=== PATIENT | female | born 1985 | race Caucasian/White ===

== ENCOUNTER → 2018-09-23 | Outpatient (CLI) | payer BC ==
--- NOTE | 2018-09-23 10:53 | MR ---
EXAMINATION TYPE: MR angio head wo con DATE OF EXAM: 09/23/2018 COMPARISON: NONE HISTORY: Migraines TECHNIQUE: Utilizing 3-D [id number] intracranial MRA of [facility] was performed. FINDINGS: The vertebrobasilar and carotid systems are patent. There is no sizable aneurysm or vascular malform ation. IMPRESSION: 1. No evidence of vascular malformation or sizable aneurysm.
--- NOTE | 2018-09-23 11:04 | MR ---
EXAMINATION TYPE: MR brain wo/w con DATE OF EXAM: 09/23/2018 COMPARISON: None HISTORY: Migraines TECHNIQUE: Multiplanar, multisequence images of the brain and brainstem is performed without and with IV contras t, utilizing 9 mL intravenous Gadavist . FINDINGS: Diffusion weighted images demonstrate no evidence of a recent infarct or other diffusion ab normality. The ventricular system and cisternal spaces are normal in size and appearance. The brain volume is age appropriate. Midline structures demonstrate normal morphology. The craniocervical junction appears within normal limits. Post contrast images demonstrate no abnormal enhancement. The dural venous sinuses appear pa tent. There is a small soft tissue nodule subcutaneous tissues along the right occiput posteriorly likely r elated to a small sebaceous cyst. There is a trace amount of fluid surrounding the optic nerve. Craniocervical junction is maintained. Sella turcica demonstrates partially empty sella. There is a nasal septal deviation. Changes of mild mastoiditis and chronic sinusitis noted. WHITE MATTER: There are approximately 15 focal areas of abnormal signal seen within the white matter. All measure less than 5 mm. No enhancing lesions. No lesions perpendicular to the ventricular system No callosal lesions IMPRESSION: 1. Nonspecific mild white matter changes can be seen with migraine headaches. Other etiologies includ ing microvascular remote white matter ischemia, hypertension, demyelinating processes, Lyme's disease or vasculitis not excluded. 2. Trace amount of fluid surrounding the optic nerves. There is no flattening of the orbits. Finding is nonspecific and occasionally BE seen with papilledema correlate clinically.
== END ==
LOC: RADMRIMAIN 08:56
PROVIDERS: ATTEND Family Medicine
DX: R90.89 Other abnormal findings on diagnostic imaging of central nervous system (principal); G43.909 Migraine, unspecified, not intractable, without status migrainosus
CPT/HCPCS: 70544; 70553

== ENCOUNTER 2018-10-11 14:02 | Emergency (ER) | payer BC ==
[2018-10-11] MEDS ORDERED: KETOROLAC 30 MG/ML 1 ML VIAL IVP STA (14:35)
[2018-10-11] MEDS ORDERED: diphenhydrAMINE 50 MG/ML 1 ML VIAL IVP STA (14:35)
[2018-10-11] MEDS ORDERED: METOCLOPRAMIDE 5 MG/ML 2 ML VIAL IVP STA (14:35)
[2018-10-11] MEDS ORDERED: SODIUM CHLORIDE 0.9% 1,000 ML IV STA (14:35)
--- NOTE | 2018-10-11 14:56 | ED ---
General Adult HPI - General Chief complaint: Headache Stated complaint: Dizzy, Headache Time Seen by Provider: 10/11/18 14:10 Source: patient, RN notes reviewed, old records reviewed Mode of arrival: wheelchair Limitations: no limitations - History of Present Illness Initial comments: 33-year-old female patient with past medical history of chronic migraine presents to ED with headache. Patient reports that this headache started shortly after she woke up this morning. Patient reports a insidious slow onset of headache. Patient was the headache is located in her right occipital lobe, described as a dull pain. Describes headache as constant. Patient states that this is similar to headaches that she has had for approximately the last 3 months. Patient has been evaluated by her primary care physician for this which she recently underwent a MRI and MRA of her brain. Patient does have follow-up with neurology approximately 2 weeks. Patient states that this is not the worst headache of her life. Patient denies any other complaints. Systemic: Pt denies fatigue, myalgia, fever/chills, rash. Pt denies weakness, night sweats, weight loss. Neuro: Pt denies headache, visual disturbances, syncope or pre-syncope. HEENT: Pt denies ocular discharge or irritation, otalgia, rhinorrhea, pharyngitis or notable lymphadenopathy. Cardiopulmonary: Pt denies chest pain, SOB, heart palpitations, dyspnea on exertion. Abdominal/GI: Pt denies abdominal pain, n/v/d. : Pt denies dysuria, burning w/ urination, frequency/urgency. Denies new onset urinary or bowel incontinence. MSK: Pt denies myalgia, loss of strength or function in extremities. Neuro: Pt denies new onset weakness, paresthesias. - Related Data Home Medications Medication Instructions Recorded Confirmed Butalb/APAP/Caff 50-325-40Mg 1 - 2 tab PO Q4H PRN 10/11/18 10/11/18 [Fioricet 50-325-40] buPROPion HCL [Wellbutrin SR] 150 mg PO BID 10/11/18 10/11/18 Allergies Allergy/AdvReac Type Severity Reaction Status Date / Time azithromycin Allergy Rash/Hives Verified 10/11/18 14:12 [From Zithromax Z-Jose Angel] erythromycin ethylsuccinate Allergy Rash/Hives Verified 10/11/18 14:12 [From Pediazole] sulfisoxazole acetyl Allergy Rash/Hives Verified 10/11/18 14:12 [From Pediazole] Review of Systems ROS Statement: Those systems with pertinent positive or pertinent negative responses have been documented in the HPI. ROS Other: All systems not noted in ROS Statement are negative. Past Medical History Past Medical History: Hypertension Additional Past Medical History / Comment(s): History Migraines History of Any Multi-Drug Resistant Organisms: None Reported Past Surgical History: Section Additional Past Surgical History / Comment(s): wisdom teeth pulled Past Anesthesia/Blood Transfusion Reactions: No Reported Reaction Past Psychological History: Anxiety, Depression Smoking Status: Current every day smoker Past Alcohol Use History: None Reported, Rare Past Drug Use History: None Reported - Past Family History Mother Family Medical History: Hypertension, Rheumatoid Arthritis (RA), Thyroid Disorder Father Family Medical History: GI Bleed, Hypertension, Rheumatoid Arthritis (RA) General Exam - General Exam Comments Initial Comments: Constitutional: NAD, AOX3, Pt has pleasant affect. HEENT: NC/AT, trachea midline, neck supple, no lymphadenopathy. Posterior pharynx non erythematous, without exudates. External ears appear normal, without discharge. Mucous membranes moist. Eyes PERRLA, EOM intact. There is no scleral icterus. No pallor noted. Cardiopulmonary: RRR, no murmurs, rubs or gallops, no JVD noted. Lungs CTAB in anterior and posterior mathis. No peripheral edema. Abdominal exam: Abdomen soft and non-distended. Abdomen non-tender to palpation in all 4 quadrants. Bowel sounds active in LLQ. No hepatosplenomegaly. No ecchymosis Neuro: CN II-XII intact. No nuchal rigidity. No focal deficit, no facial droop. MSK: No posterior calf tenderness bilaterally, homans sign negative bilaterally. Posterior tibialis and radial pulse +2 bilaterally. Sensation intact in upper and lower extremities. Full active ROM in upper and lower extremities, 5/5 stregnth. Limitations: no limitations Course Vital Signs 10/11/18 14:05 Temperature 98.4 F Pulse Rate 108 H Respiratory 18 Rate Blood Pressure 142/87 O2 Sat by Pulse 99 Oximetry Medical Decision Making - Medical Decision Making 33-year-old female patient with past medical history of chronic migraine presents to ED with headache. Patient reports that this headache started shortly after she woke up this morning. Patient reports a insidious slow onset of headache. Patient was the headache is located in her right occipital lobe, described as a dull pain. Describes headache as constant. Patient states that this is similar to headaches that she has had for approximately the last 3 months. Patient has been evaluated by her primary care physician for this which she recently underwent a MRI and MRA of her brain. Patient does have follow-up with neurology approximately 2 weeks. Patient states that this is not the worst headache of her life. Patient denies any other complaints. Pt VSS, afebrile. Physical exam displayed normal neurologic exam. Patient's prior imaging MRI and MRA were reviewed. Patient had ophthalmology follow-up due to possible mom of trace fluid an optic nerve that was reportedly benign. Shared decision making, patient does not assure additional radiation burden up imaging, would prefer to be treated symptomatically. Patient administered Reglan, Toradol, Benadryl. Patient headache resolved. Pt has hx of tubal ligation and is not . Patient discharged. Patient will call neurologist and follow up as soon as possible. PT will return to ER if condition worsens in anyway. Case discussed with Dr. Parson. Disposition Clinical Impression: Acute headache Disposition: HOME SELF-CARE Condition: Stable Instructions (If sedation given, give patient instructions): Acute Headache (ED) Additional Instructions: Patient to adhere to previously discussed treatment plan and will take medication(s) as directed. Patient to follow up with PCP in 1-2 days. Patient to return to ED if symptoms do not improve. Please call neurologist tomorrow for follow-up. Return to ER if condition worsens in any way. Is patient prescribed a controlled substance at d/c from ED?: No Referrals: Mack Sharma MD [Primary Care Provider] - 1-2 days
[2018-10-11 17:06] VITALS: BP 131/80; PULSE 81; RESP 8; TEMP 98.7
== END 2018-10-11 17:05 | disposition home or self-care (01) ==
LOC: EC 14:02
DX: G43.709 Chronic migraine without aura, not intractable, without status migrainosus (principal); F32.9 Major depressive disorder, single episode, unspecified; F17.200 Nicotine dependence, unspecified, uncomplicated; Z79.899 Other long term (current) drug therapy; Z88.1 Allergy status to other antibiotic agents; Z88.2 Allergy status to sulfonamides
CPT/HCPCS: 99283; 96374; 96375 ×2; 96361; J1200; J2765; J1885

== ENCOUNTER → 2021-02-20 | Outpatient (CLI) | payer BC ==
--- NOTE | 2021-02-20 11:21 | US ---
EXAMINATION TYPE: US abdomen complete DATE OF EXAM: 02/20/2021 COMPARISON: NONE CLINICAL HISTORY: R10.9 abdominal pain. Generalized ABD pain EXAM MEASUREMENTS: Liver Length: 18.0 cm Gallbladder Wall: 0.2 cm CBD: 0.3 cm Spleen: 12.2 cm Right Kidney: 10.6 x 4.1 x 5.2 cm Left Kidney: 11.3 x 4.9 x 4.3 cm Large pt body habitus Pancreas: wnl, tail obscured by overlying bowel gas Liver: Upper limits of normal for size, difficult to penetrate Gallbladder: wnl, multiple folds Evidence for sonographic Ronquillo's sign: No CBD: wnl Spleen: wnl Right Kidney: wnl Left Kidney: wnl Upper IVC: wnl Abd Aorta: wnl The intrahepatic portion of the IVC and proximal abdominal aorta are within normal limits. There is no evidence of cholelithiasis. Common bile duct is unremarkable. The visualized portions of the mcclure creas are homogenous. The spleen is unremarkable. Kidneys are symmetric and free of hydronephrosis. No renal lesions are seen. IMPRESSION: Hepatomegaly with underlying fatty hepatic infiltration suggested.
== END | disposition home or self-care (01) ==
LOC: RADUSWWP 10:03
PROVIDERS: ATTEND Family Medicine
DX: K76.0 Fatty (change of) liver, not elsewhere classified (principal); R16.0 Hepatomegaly, not elsewhere classified
CPT/HCPCS: 76700

== ENCOUNTER → 2021-05-08 | Outpatient (CLI) | payer BC ==
[2021-05-08 14:21] VITALS: BP 136/91; PULSE 111; RESP 18; TEMP 98.6; BMI 40.5
--- NOTE | 2021-05-08 14:42 | P.HPBAR ---
Bariatric H&P - History & Physicial H&P Date: 05/08/21 History & Physicial: Visit/CC: initial visit Patient initial contact: Initial weight: 103.873 kg Initial weight in pounds: 229.00 Height: 5 ft 3 in Initial BMI: 40.5 Last weight: Current weight: 103.873 kg Current weight in pounds: 229.00 Current BMI: 40.5 [place] body weight (based on NIH guidelines): 52.163 kg Excess body weight loss: 0.0% The patient is a 35 year-old F who presents for Bariatric Assessment. She is looking into the lap band. She has tried Adipex, Weight watchers, calorie restriction. She tried [employer] online for weight loss this summer. Most weight loss is 50 pounds. Highest personal weight 235 pounds. Her goal weight is 150 pounds. No chest pain. Her mother has trouble with weight including grandfather. She has occasional gastroesophageal reflux disease. She has two sections. She still has her gallbladder. She has trouble with eating fatty foods. No known family of gallbladder disease. She denies family history of lupus or multiple sclerosis. She is a grazer and eats late breakfast. She is a snacker. She denies dysphagia. Past Medical History Past Medical History: Hypertension, Thyroid Disorder Additional Past Medical History / Comment(s): History Migraines. hypothyroidism. History of Any Multi-Drug Resistant Organisms: None Reported Past Surgical History: Section Additional Past Surgical History / Comment(s): wisdom teeth pulled. csection X2. Past Anesthesia/Blood Transfusion Reactions: No Reported Reaction Smoking Status: Former smoker - Past Family History Mother Family Medical History: Hypertension, Rheumatoid Arthritis (RA), Thyroid Disorder Father Family Medical History: GI Bleed, Hypertension, Rheumatoid Arthritis (RA) Surgical - Exam Vital Signs Temp Pulse Resp BP 98.6 F 111 H 18 136/91 05/08/21 14:19 05/08/21 14:19 05/08/21 14:19 05/08/21 14:19 Bariatric Checklist Checklist: Plan: Checklist: EGD: 1. Hiatal hernia: 2. H. Pylori: HgbA1c: Vitamin D: Smoking: Current every day smoker Primary care physician referral: Dr. Mack Sharma Psychiatry clearance: Cardiology clearance: Sleep study: Diet journal: VTE risk score: VTE risk level: Rehab needs at discharge:
== END | disposition home or self-care (01) ==
LOC: BARWHC3 13:12
PROVIDERS: ATTEND Surgery Plastic and Reconstructive Surgery
DX: K44.9 Diaphragmatic hernia without obstruction or gangrene (principal); A04.8 Other specified bacterial intestinal infections
CPT/HCPCS: 99203

== ENCOUNTER → 2021-05-09 | Outpatient (CLI) | payer BC ==
[2021-05-09 10:08] LABS: INR 0.9 (<1.2); Partial Thromboplastin Time 25.8 sec (22.0-30.0)
[2021-05-09 16:03] LABS: HCT 43.3 % (37.2-46.3); MCH 29.2 pg (27.0-32.0); MCHC 32.3 g/dL (32.0-37.0); MCV 90.2 fL (80.0-97.0); Platelet Count 353 X 10*3/uL (140-440); RDW 13.6 % (11.5-14.5); WBC 9.02 X 10*3/uL (4.50-10.00)
[2021-05-09 16:59] LABS: % Iron Saturation 14.11 (12.00-45.00); ALT 30 U/L (8-44); AST 23 U/L (13-35); Albumin 4.7 g/dL (3.8-4.9); Albumin/Globulin Ratio 1.98 (1.60-3.17); Alkaline Phosphatase 92 U/L (41-126); BUN/Creat Ratio 9.29 Ratio (12.00-20.00); Calcium 9.4 mg/dL (8.7-10.3); Carbon Dioxide 21.1 mmol/L (21.6-31.8); Chloride 102 mmol/L (96-109); Chol/HDL Ratio 4.61 Ratio; Ferritin 29.8 ng/mL (10.0-291.0); Globulin 2.4 g/dL (1.6-3.3); Glucose 92 mg/dL (70-110); Iron 55 ug/dL (50-170); Magnesium 2.2 mg/dL (1.5-2.4); Non-African American GFR(CKD) 87.2 (60.0-200.0); Phosphorus 3.2 mg/dL (2.4-5.1); Potassium 4.3 mmol/L (3.5-5.5); Prealbumin 26.6 mg/dL (18.0-42.0); Sodium 136 mmol/L (135-145); Total Iron Binding Capacity 392 ug/dL (228-460); Total Protein 7.1 g/dL (6.2-8.2)
[2021-05-10 13:24] LABS: Zinc, Serum 82 ug/dL (60-130)
[2021-05-10 15:03] LABS: Anabasine Urine <2.0 ng/mL (<2.0)
[2021-05-11 13:52] LABS: Vit B1(Thiamine) 67 ug/L (38-122)
[2021-05-13 11:34] LABS: Vitamin A 47 ug/dL (38-106)
== END | disposition home or self-care (01) ==
LOC: LABWHC1 08:35
PROVIDERS: ATTEND Surgery Plastic and Reconstructive Surgery
DX: E89.1 Postprocedural hypoinsulinemia (principal); D50.8 Other iron deficiency anemias; E44.0 Moderate protein-calorie malnutrition; E55.9 Vitamin D deficiency, unspecified; K74.1 Hepatic sclerosis; N19 Unspecified kidney failure; K50.90 Crohn's disease, unspecified, without complications
CPT/HCPCS: 84255; 84134; 84425; 80061; 80053; 82607; 82728; 82525; 82746; 83540; 83550; 83735; 84100; 84443; 84590; 84630; 85027; 85610; 85730; 82306; 80323; 83970; 83036; 80307; 93005; 36415; G0482

== ENCOUNTER 2021-06-17 08:03 | Day surgery (SDC) | payer BC ==
[2021-06-14 09:03] VITALS: BMI 42.0
--- NOTE | 2021-06-17 07:52 | P.GSHP ---
History of Present Illness H&P Date: 06/17/21 CHIEF COMPLAINT: GERD HISTORY OF PRESENT ILLNESS: The patient is a 35-year-old female who presents reports gastroesophageal reflux disease. Upper endoscopy was offered for further evaluation and management. PAST MEDICAL HISTORY: Please see list. PAST SURGICAL HISTORY: Please see list. MEDICATIONS: Please see list. ALLERGIES: Please see list. SOCIAL HISTORY: No illicit drug use FAMILY HISTORY: No reports of Crohn disease or ulcerative colitis. REVIEW OF ORGAN SYSTEMS: CONSTITUTIONAL: No reports of fevers or chills. GI: Denies any blood in stools or constipation. PHYSICAL EXAM: VITAL SIGNS: Stable GENERAL: Well-developed and pleasant in no acute distress. HEENT: No scleral icterus. Extraocular movements grossly intact. Moist buccal mucosa. NECK: Supple without lymphadenopathy. CHEST: Unlabored respirations. Equal bilateral excursions. CARDIOVASCULAR: Regular rate and rhythm. Distal 2+ pulses. ABDOMEN: Soft, nondistended. MUSCULOSKELETAL: No clubbing, cyanosis, or edema. ASSESSMENT: 1. Gastroesophageal reflux disease PLAN: 1. Recommend proceeding with an upper endoscopy Past Medical History Past Medical History: GERD/Reflux, Hypertension, Thyroid Disorder Additional Past Medical History / Comment(s): History Migraines. hypothyroidism. History of Any Multi-Drug Resistant Organisms: None Reported Past Surgical History: Section Additional Past Surgical History / Comment(s): wisdom teeth extractions . c section X2. Past Anesthesia/Blood Transfusion Reactions: No Reported Reaction Smoking Status: Former smoker - Past Family History Mother Family Medical History: Rheumatoid Arthritis (RA), Thyroid Disorder Father Family Medical History: GI Bleed, Hypertension, Rheumatoid Arthritis (RA) Medications and Allergies Home Medications Medication Instructions Recorded Confirmed Type Cholecalciferol [Vitamin D3 (25 50 mcg PO DAILY 05/08/21 06/14/21 History Mcg = 1000 Iu)] Levothyroxine Sodium [Synthroid] 75 mcg PO DAILY 05/08/21 06/14/21 History Allergies Allergy/AdvReac Type Severity Reaction Status Date / Time azithromycin Allergy Rash/Hives Verified 06/14/21 08:40 [From Zithromax Z-Jose Angel] erythromycin ethylsuccinate Allergy Rash/Hives Verified 06/14/21 08:40 [From Pediazole] sulfisoxazole acetyl Allergy Rash/Hives Verified 06/14/21 08:40 [From Pediazole]
[~2021-06-17 08:03] MED LIST: LACTATED RINGERS 1,000 ML IV SCH
[2021-06-17] MEDS ORDERED: LIDOCAINE 1% (10MG/ML) FOR IV START INTRADERMA ONE (09:05)
[2021-06-17 09:16] VITALS: RESP 16; TEMP 98.4
[2021-06-17] MEDS ORDERED: PROPOFOL 10 MG/ML 20 ML VIAL IV ONE (09:40)
[2021-06-17] MEDS ORDERED: MIDAZOLAM 2 MG/2 ML VIAL ONE (09:40)
[2021-06-17] MEDS ORDERED: LIDOCAINE 1% INJ 10MG/ML (20 ML MDV) ONE (09:40)
--- NOTE | 2021-06-17 09:58 | P.PCN ---
Date of Procedure: 06/17/21 Description of Procedure: PREOPERATIVE DIAGNOSIS: Gastroesophageal reflux disease. Morbid obesity. POSTOPERATIVE DIAGNOSIS: Morbid obesity. Gastritis. Gastroesophageal reflux disease. Diaphragmatic hiatal hernia OPERATION: Esophagogastroduodenoscopy with biopsies along antrum. SURGEON: Jessika Guerrier MD ANESTHESIA: MAC. INDICATIONS: The patient is a 35-year-old female who presents with a history of reflux disease. Benefits and risks of the procedure were described. Informed consent was obtained. DESCRIPTION: The patient was brought into the endoscopy suite and laid in the left lateral decubitus position. An Olympus gastroscope was passed along the posterior oropharynx down to the distal esophagus where the squamocolumnar junction was encountered at 35 cm from the incisors. The stomach was entered and no bile reflux was found. Additional findings are listed below. Biopsies with cold fo rceps were obtained of the antrum. The first through third portion of the duodenum was examined and unremarkable. Retroflexion of the scope confirmed Hill grade 3 lower esophageal valve. The squamocolumnar junction demonstrated LA grade B erosive esophagitis. The stomach was desufflated. The patient tolerated the procedure well. FINDINGS: Squamocolumnar junction 35 cm from the incisors. Diaphragmatic hiatus at 36 cm. Hiatal hernia, 1 cm Hill grade 3 lower esophageal valve. LA grade B erosive esophagitis. No active duodenitis. Chronic gastritis RECOMMENDATIONS: Upper endoscopy as needed. Plan - Discharge Summary Discharge Rx Participant: No New Discharge Prescriptions: Continue Levothyroxine Sodium [Synthroid] 75 mcg PO DAILY Cholecalciferol [Vitamin D3 (25 Mcg = 1000 Iu)] 50 mcg PO DAILY Discharge Medication List Cholecalciferol [Vitamin D3 (25 Mcg = 1000 Iu)] 50 mcg PO DAILY 05/08/21 [ History] Levothyroxine Sodium [Synthroid] 75 mcg PO DAILY 05/08/21 [History] Follow [facility] [place] [facility] Patient Instructions/Handouts: Gastritis (DC) Discharge Disposition: HOME SELF-CARE
[2021-06-17 10:39] VITALS: BP 128/62; PULSE 94
== END 2021-06-17 10:40 | disposition home or self-care (01) ==
LOC: ORWHC2ENDO 08:03
PROVIDERS: ATTEND Surgery Plastic and Reconstructive Surgery
DX: K29.70 Gastritis, unspecified, without bleeding (principal); K21.9 Gastro-esophageal reflux disease without esophagitis; E66.01 Morbid (severe) obesity due to excess calories; K44.9 Diaphragmatic hernia without obstruction or gangrene
CPT/HCPCS: 43239; 81025; J2250; J2001; J2704; 88305

== ENCOUNTER → 2021-10-14 | Outpatient (CLI) | payer BC ==
[2021-10-14 14:54] LABS: Basophils # (A) 0.06 X 10*3/uL (0.00-0.10); Basophils % (A) 0.7 %; Eosinophils # (A) 0.21 X 10*3/uL (0.04-0.35); Eosinophils % (A) 2.5 %; HCT 45.5 % (37.2-46.3); HGB 14.5 g/dL (12.0-15.0); Immature Grans, Automated 0.5 %; Lymphocytes # (A) 2.92 X 10*3/uL (0.90-5.00); Lymphocytes % (A) 34.8 %; MCH 28.7 pg (27.0-32.0); MCHC 31.9 g/dL (32.0-37.0); MCV 90.1 fL (80.0-97.0); Mean Platelet Volume 10.5 fL (9.5-12.2); NRBC Per 100 WBC 0 /100 WBCS (0.0-0.0); Neutrophils # (A) 4.66 X 10*3/uL (1.80-7.70); Neutrophils % (A) 55.5 %; Platelet Count 324 X 10*3/uL (140-440); RBC 5.05 X 10*6/uL (4.10-5.20); RDW 14.4 % (11.5-14.5); WBC 8.39 X 10*3/uL (4.50-10.00)
[2021-10-14 15:06] LABS: African American GFR (CKD) 110.3 (60.0-200.0); Albumin 4.8 g/dL (3.8-4.9); Albumin/Globulin Ratio 1.63 (1.60-3.17); Anion Gap 11.7 mmol/L (10.00-18.00); BUN/Creat Ratio 17.4 Ratio (12.00-20.00); Blood Urea Nitrogen 13.8 mg/dL (9.0-27.0); Calcium 9.3 mg/dL (8.7-10.3); Carbon Dioxide 20.1 mmol/L (20.0-27.5); Non-African American GFR(CKD) 95.2 (60.0-200.0); Potassium 4.4 mmol/L (3.5-5.5); Total Bilirubin 0.5 mg/dL (0.30-1.20); Total Protein 7.8 g/dL (6.2-8.2)
== END | disposition home or self-care (01) ==
LOC: LABPAT 08:34
PROVIDERS: ATTEND Surgery Plastic and Reconstructive Surgery
DX: Z01.812 Encounter for preprocedural laboratory examination (principal); Z01.818 Encounter for other preprocedural examination
CPT/HCPCS: 36415; 80053; 85025

== ENCOUNTER 2021-10-21 07:43 | Day surgery (SDC) | payer BC ==
[2021-10-17 15:19] VITALS: BMI 40.2
[2021-10-21] MEDS ORDERED: ONDANSETRON 4 MG/2 ML VIAL ONE (08:43)
[2021-10-21] MEDS ORDERED: ACETAMINOPHEN TAB 500 MG TAB ONE (08:43)
[2021-10-21] MEDS ORDERED: CHLORHEXIDINE GLUCONATE 15 ML CUP MUCOUS MEM ONE (08:44)
[2021-10-21] MEDS ORDERED: ROCURONIUM 10 MG/ML (5 ML VIAL) IV ONE (09:28)
[2021-10-21] MEDS ORDERED: GLYCOPYRROLATE 0.2 MG/ML 2 ML VIAL ONE (09:28)
[2021-10-21] MEDS ORDERED: PROPOFOL 10 MG/ML 20 ML VIAL IV ONE (09:28)
[2021-10-21] MEDS ORDERED: SODIUM CHLORIDE 0.9% 100 ML BAG ONE (09:28)
[2021-10-21] MEDS ORDERED: KETOROLAC 15 MG/ML 1 ML VIAL ONE (09:28)
[2021-10-21] MEDS ORDERED: HYDROmorphone (PF) 1 MG/ML ONE (09:28)
[2021-10-21] MEDS ORDERED: MIDAZOLAM 2 MG/2 ML VIAL ONE (09:28)
[2021-10-21] MEDS ORDERED: PHENYLEPHRINE-0.9% NACL SYG 1,000 MCG/10 ML SYRINGE ONE (09:28)
[2021-10-21] MEDS ORDERED: ceFAZolin 1,000 MG VIAL ONE (09:28)
[2021-10-21] MEDS ORDERED: NEOSTIGMINE 1 MG/ML 10 ML VIAL ONE (09:28)
[2021-10-21] MEDS ORDERED: LIDOCAINE 2% INJ 20 MG/ML (2 ML VIAL) ONE (09:28)
[2021-10-21] MEDS ORDERED: SUCCINYLCHOLINE CHLORIDE 100 MG/5 ML SYR IV ONE (09:28)
[2021-10-21] MEDS ORDERED: fentaNYL (PF) 50 MCG/ML 2 ML AMP ONE (09:28)
[2021-10-21] MEDS ORDERED: BUPIVACAIN-EPI 0.25%-1:200,000 30 ML VIAL ONE (09:30)
[2021-10-21] MEDS ORDERED: LACTATED RINGERS 1,000 ML BAG IV ONE (09:30)
[2021-10-21] MEDS ORDERED: SODIUM CHLORIDE 0.9% 1,000 ML BAG ONE (09:30)
[2021-10-21] MEDS ORDERED: LACTATED RINGERS 1,000 ML IV ONE ×2 (11:13)
[2021-10-21] MEDS ORDERED: diphenhydrAMINE 50 MG/ML 1 ML VIAL IVP PRN (11:27)
[2021-10-21] MEDS ORDERED: NALOXONE 0.4 MG/ML 1 ML VIAL IV PRN (11:27)
[2021-10-21] MEDS ORDERED: HYDROmorphone 1 MG/ML 1 ML SYRINGE IVP PRN (11:27)
--- NOTE | 2021-10-21 11:27 | P.GSHP ---
History of Present Illness H&P Date: 10/21/21 CHIEF COMPLAINT: Morbid obesity HISTORY OF PRESENT ILLNESS: Cherie Caldwell is a 35-year-old female who comes with lifelong morbid obesity. She has completed medical supervised weight loss. As result of her morbid obesity, she comes in with hypertensive heart disease including gastroesophageal reflux disease. Patient has now elected for sleeve gastrectomy. At height of 5 feet 3 inches, her ideal body weight is 140 pounds. Her highest personal weight 235 pounds, BMI 41.7. She comes in 234 pounds from 229 pounds, 2 months ago. She has gained 6 pounds in 2 months. Her body mass index is 41.6. She is 95 pounds overweight. PAST MEDICAL HISTORY: 1. Morbid obesity due to excess calories 2. Body mass index of 41.7, initial 3. Hypothyroidism 4. Migraines 5. Hypertensive heart disease 6. Gastroesophageal reflux disease PAST SURGICAL HISTORY: 1. section x 2 HOME MEDICATIONS: Home Medications Medication Instructions Recorded Confirmed Cholecalciferol [Vitamin D3 (25 50 mcg PO DAILY 05/08/21 07/03/21 Mcg = 1000 Iu)] Levothyroxine Sodium [Synthroid] 75 mcg PO DAILY 05/08/21 07/03/21 ALLERGIES: Allergies Allergy/AdvReac Type Severity Reaction Status Date / Time azithromycin Allergy Rash/Hives Verified 07/03/21 14:55 [From Zithromax Z-Jose Angel] erythromycin ethylsuccinate Allergy Rash/Hives Verified 07/03/21 14:55 [From Pediazole] sulfisoxazole acetyl Allergy Rash/Hives Verified 07/03/21 14:55 [From Pediazole] SOCIAL HISTORY: Past tobacco use. FAMILY HISTORY: No family history of ulcerative colitis disease or Crohn's disease. Family history of morbid obesity. No lupus in the family. No reports of stomach or esophageal cancer. Her mother has trouble with her weight including grandfather. She denies known family of gallbladder disease. She denies family history of lupus or multiple sclerosis. REVIEW OF ORGAN SYSTEMS: CONSTITUTIONAL: At height of 5 feet 3 inches, her ideal body weight is 140 pounds. Her highest personal weight 235 pounds, BMI 41.7. She comes in 229 pounds. Her body mass index is 40.6. She is 89 pounds overweight. HEENT: Denies any active troubles with vision or hearing. ENDOCRINE: Denies diabetes. Has hypothyroidism. CARDIOVASCULAR: Denies past reports of palpitations or heart attacks or chest pain. Has hypertensive heart disease. RESPIRATORY: Denies asthma. GASTROINTESTINAL: Denies any bright red blood per rectum. No diarrhea. No constipation. Has gastroesophageal reflux disease. GENITOURINARY: Denies bladder urgency. No recent blood in urine MUSCULOSKELETAL: Has lower back pain and joint pain. Has osteoarthritis of the knees. NEURO: Has headaches. No seizure disorders. PSYCH: Denies depression. No suicidal ideation. RHEUMATOLOGIC: No lupus. No rheumatoid arthritis. HEMATOLOGIC: Denies any abnormal bleeding or bruising. SKIN: No rash. No skin cancer. PHYSICAL EXAM: VITAL SIGNS: Height 5 foot 3 inches, weight 234 pounds. BMI 41.6 GENERAL: Well-developed in no acute distress. HEENT: No scleral icterus. Extraocular movements grossly intact. Hears conversational speech. No nasal drainage. NECK: Supple without lymphadenopathy. CHEST: Nonlabored respirations with equal bilateral excursions. CARDIOVASCULAR: Tachycardic. Distal 2+ pulses. ABDOMEN: Obese, soft, nontender, nondistended. MUSCULOSKELETAL: No clubbing, cyanosis. NEURO: No focal or lateralizing signs. Cranial nerves 2 through 12 grossly within normal limits. PSYCH: Appropriate affect. Alert and oriented to person, place and time. SKIN: Good skin turgor. Well perfused. ASSESSMENT: 1. Morbid obesity due to excess calories 2. Body mass index of 41.7 3. Hypothyroidism 4. Migraines 5. Hypertensive heart disease 6. Gastroesophageal reflux disease 7. Persistent tachycardia 8. Vitamin D deficiency PLAN: 1. Bariatric options between a sleeve, band and a Nixon-en-Y gastric bypass were reviewed in detail. The patient elected for a sleeve gastrectomy. Robotic assisted approach described. 2. The [place] [facility] Data was also reviewed with benefits and risks as described. 3. An 8 page second-generation bariatric consent form was reviewed in detail including potential of bleeding, infection, leaks, adequate weight loss, nutr itional deficiencies which the patient demonstrated understanding of the risks. 4. A 2 week high-protein low caloric 800 kcal diet described to address hepatomegaly. 5. Preoperative labs including complete metabolic panel and CBC with type and screen recommended. 6. DVT prophylaxis per [place] [facility]. 7. Antibiotic prophylaxis. 8. Inpatient hospitalization anticipated for more than 2 nights. 9. All questions and concerns were addressed with the patient. 10. Overall, patient has expressed understanding of bariatric care including postoperative diet and commitment of lifestyle. Patient should benefit from surgical intervention for correction of her morbid obesity. Past Medical History Past Medical History: GERD/Reflux, Hypertension, Thyroid Disorder Additional Past Medical History / Comment(s): History Migraines. HTN UNDER CONTROL History of Any Multi-Drug Resistant Organisms: None Reported Past Surgical History: Section Additional Past Surgical History / Comment(s): wisdom teeth extractions . c section X2. EGD Past Anesthesia/Blood Transfusion Reactions: No Reported Reaction Smoking Status: Former smoker - Past Family History Mother Family Medical History: Hypertension, Rheumatoid Arthritis (RA), Thyroid Disorder Father Family Medical History: GI Bleed, Hypertension, Rheumatoid Arthritis (RA) Medications and Allergies Home Medications Medication Instructions Recorded Confirmed Type Levothyroxine Sodium [Synthroid] 75 mcg PO DAILY 05/08/21 10/17/21 History Allergies Allergy/AdvReac Type Severity Reaction Status Date / Time azithromycin Allergy Rash/Hives Verified 10/17/21 15:10 [From Zithromax Z-Jose Angel] erythromycin ethylsuccinate Allergy Rash/Hives Verified 10/17/21 15:10 [From Pediazole] sulfisoxazole acetyl Allergy Rash/Hives Verified 10/17/21 15:10 [From Pediazole] Surgical - Exam Vital Signs Temp Pulse Resp BP Pulse Ox 98 F 80 18 118/69 94 L 10/21/21 11:10 10/21/21 11:10 10/21/21 11:10 10/21/21 11:10 10/21/21 11:10
[2021-10-21] MEDS ORDERED: SODIUM CHLORIDE 0.9% 2,000 ML IV ONE (11:31)
[2021-10-21] MEDS: HYDROmorphone 0.5 MG/0.5 ML SYRINGE IVP ONE ×2 (11:31→14:41)
--- NOTE | 2021-10-21 11:34 | P.OP ---
Date of Procedure: 10/21/21 Description of Procedure: SURGEON: ARTEMIO PARKER MD PREOPERATIVE DIAGNOSES: 1. Morbid obesity due to excess calories 2. Body mass index of 41.7 3. Hypothyroidism 4. Migraines 5. Hypertensive heart disease 6. Gastroesophageal reflux disease 7. Persistent tachycardia 8. Vitamin D deficiency POSTOPERATIVE DIAGNOSES: 1. Morbid obesity due to excess calories 2. Body mass index of 41.7 3. Hypothyroidism 4. Migraines 5. Hypertensive heart disease 6. Gastroesophageal reflux disease 7. Persistent tachycardia 8. Vitamin D deficiency OPERATION: 1. Robotic assisted daVinci Xi laparoscopic sleeve gastrectomy with 40-Sudanese bougie, multiport. 2. Intraoperative esophagogastroduodenoscopy. ANESTHESIA: Gen. local anesthetic ESTIMATED BLOOD LOSS: 10 mL SPECIMENS REMOVED: Sleeve gastrectomy COMPLICATIONS: None. FINDINGS: 1. Negative intraoperative esophagogastrojejunoscopy leak test. 2. No hepatomegaly and no large hiatus hernia. 3. Total of 6 staplers used including 2 - 60 mm greens robot wade and 4 - 60 mm blue robot loads used to create the gastric sleeve. 4. Sleeve gastrectomy, 22 x 4 cm INDICATIONS: Cherie Caldwell is a 35-year-old female who comes with lifelong morbid obesity. She has completed medical supervised weight loss. As result of her morbid obesity, she comes in with hypertensive heart disease including gastroesophageal reflux disease. Patient has now elected for sleeve gastrectomy. At height of 5 feet 3 inches, her ideal body weight is 140 pounds. Her highest personal weight 235 pounds, BMI 41.7. She comes in 234 pounds from 229 pounds, 2 months ago. She has gained 6 pounds in 2 months. Her body mass index is 41.6. She is 95 pounds overweight. All surgical options for morbid obesity had been described using the [place] bariatric surgery collaborative comorbidity resolution including complication risk score. A second-generation bariatric consent form was described in detail including the possibility of protein malnutrition, leaks, gastric stricture, venous thrombosis, gastroesophageal reflux disease, need for further surgery for which she demonstrated understanding. Benefits and risks of the procedure were described at length. Informed consent was obtained. DESCRIPTION: The patient was brought into the operating room theater. Preoperatively she had received Lovenox subcutaneously for DVT prophylaxis. Additionally she had Peridex oral solution as an oral decontaminant. After general induction, the abdomen was prepped and draped in standard sterile fashion. An Ioban draping was placed along the abdomen. A robotic da Korina Xi system was prepped and primed. At 13 cm from the xiphoid, proposed port sites were marked with indelible marker along the anterior axillary line bilaterally, mid axillary line bilaterally with each ports were marked 10 to 15 cm from each other. The robotic stapler port was marked for the right midclavicular line. A 5 mm 0 degrees laparoscopic trocar entry was performed along the left upper quadrant. The abdomen was insufflated to 15 mmHg pressure was tolerated well. Diagnostic laparoscopy demonstrated no injury to bowel, viscera, or mesentery. No evidence of large hiatus hernia was identified. The liver edge was sharp consistent with 2 week low-carb high-protein diet. A 8 mm port was placed along the left upper abdominal wall after exchanging the 5 mm port. A separate 8 mm port was placed along the left lateral abdominal wall. Please note that the ports were placed at least 20 cm away from the target anatomy. Care was taken to check each robotic arms were safely away from collision with the bed or the patient. At the epigastrium, a medium sized Devante liver retractor was placed under direct visualization with the Iron Waiter/Waitress placed under the right shoulder of the patient. Next, 12-mm robot stapler port was placed along the right upper quadrant. The camera 8-mm port was maintained along the epigastrium. The patient was repositioned in reverse Trendelenburg position at 21-degrees after lowering the bed. The robot was docked along the left side of the patient. Using a grasper for arm 4, a vessel sealer for arm 3, including grasper for arm 1, the robotic system was docked and primed as described. Instruments were interchanged by the medical assistant dermatology for stapler loads. The camera was placed at 30- degrees down. I had sat at the console. The pylorus was identified and 6 cm proximally along the greater curvature of the stomach, the short gastrics were mobilized upwards to the angle of His using a vessel sealer. Hemostasis was excellent during this portion of the procedure. Next, the upper pole of the stomach was adherent to the left he, which was gently dissected free using atraumatic grasper. I went to the head of the bed and placed 40-Sudanese blunt bougie into the stomach. The bougie was readjusted by the nurse descriptive catalog librarian. Robotic stapler green load 60 mm 2 followed by blue 60 mm x 4 loads were used to create the sleeve. Initial firing was across the antrum of the stomach towards the angle of His. The staple line was linear without corkscrewing. The space from the angularis incisura of the sleeve was approximately 4 cm. I then went to the head of the bed to perform the intraoperative esophagogastro duodenoscopy leak test. The bougie was withdrawn. The upper pole of the stomach was bathed using normal saline solution. The scope was withdrawn with careful inspection along the staple line for which no leaks were found along the entire length. Additionally,the sleeve was completely hemostatic without any encroachment along the angularis incisura. Its topology was a soft "J". No stricture was encountered upon placement of the scope. The GI tract was desufflated. The patient tolerated this portion of the procedure well. The scope was completely withdrawn. The robot was undocked. I then rescrubbed into case, whereby the irrigation fluid was aspirated from the abdominal cavity. Tisseel fibrin sealant was placed along the entire staple length. Once dried the Devante liver retractor was removed. Attention was now brought to removal of the specimen. The distal end of the sleeve gastrectomy specimen was brought out through the 12 mm port at the left upper quadrant. The specimen was gently removed en total. No contamination had occurred during this process. All instruments and pneumoperitoneum including irrigation fluid was removed from the abdominal cavity. The 12 mm port site was closed using 0-Vicryl and Wellington Fernández and irrigated with diluted hydrogen peroxide. The final incisions were closed using subcuticular interrupted suture of 4-0 Monocryl. Exofin was applied to the skin once the skin had been cleansed. OptiFoam dressing was placed along the stomach extraction site. The sleeve specimen was measured and checked also for leaks which none were found. At the end of the procedure, needle, sponge, and instrument count was verified correct by the rn neurosurgical. The patient was taken to the postanesthesia care unit in stable condition. She had tolerated the procedure well. Intraoperative films and findings were reviewed with the patient's family.
[2021-10-21] MEDS ORDERED: SIMETHICONE 40 MG/0.6 ML DROPS 2,000 MG/30 ML BOTTLE PO ONE (13:45)
[2021-10-21] MEDS ORDERED: DEXAMETHASONE SOD PHOSPHATE 10 MG/ML 1 ML VIAL IVP PRN (15:06)
[2021-10-21] MEDS: SIMETHICONE 40 MG/0.6 ML DROPS 2,000 MG/30 ML BOTTLE PO SCH (16:40)
[2021-10-21] MEDS ORDERED: HYDROmorphone 0.5 MG/0.5 ML SYRINGE IVP PRN (17:19)
[2021-10-21] MEDS ORDERED: LIDOCAINE 1% (10MG/ML) FOR IV START INTRADERMA PRN (17:19)
[2021-10-21] MEDS ORDERED: MIDAZOLAM 2 MG/2 ML VIAL IV PRN (17:19)
[2021-10-21] MEDS ORDERED: ONDANSETRON 4 MG/2 ML VIAL IVP ONE (17:19)
[2021-10-21] MEDS ORDERED: LACTATED RINGERS 1,000 ML IV SCH (17:19)
[2021-10-21] MEDS ORDERED: DEXAMETHASONE SOD PHOSPHATE 4 MG/ML 1 ML VIAL IV ONE (17:19)
[2021-10-21] MEDS ORDERED: SCOPOLAMINE 1 MG/72 HR PATCH TRANSDERM SCH (18:00)
[2021-10-21] MEDS: ACETAMINOPHEN IV (For NPO) 1,000 MG in EMPTY BAG 1 BAG IVPB SCH (18:30)
[2021-10-21] MEDS: HYOSCYAMINE ORAL DROPS 1.875 MG/15 ML BOTTLE PO SCH (18:31)
[2021-10-21] MEDS: ONDANSETRON 4 MG/2 ML VIAL IVP SCH (18:31)
[2021-10-21] MEDS: 0.9% NACL WITH KCL 20 MEQ/L 1,000 ML IV SCH ×2 (18:31→18:32)
[2021-10-21] MEDS: ALBUTEROL NEBULIZED 2.5 MG/3 ML INHALATION SCH ×2 (19:38→19:42)
[2021-10-21] MEDS: PANTOPRAZOLE 40 MG/10 ML VIAL IV SCH (22:08)
[2021-10-22] MEDS: ACETAMINOPHEN IV (For NPO) 1,000 MG in EMPTY BAG 1 BAG IVPB SCH ×3 (01:21→11:41)
[2021-10-22] MEDS: ONDANSETRON 4 MG/2 ML VIAL IVP SCH ×3 (01:22→11:41)
[2021-10-22] MEDS: HYOSCYAMINE ORAL DROPS 1.875 MG/15 ML BOTTLE PO SCH ×3 (01:22→11:42)
[2021-10-22] MEDS: SIMETHICONE 40 MG/0.6 ML DROPS 2,000 MG/30 ML BOTTLE PO SCH ×4 (01:22→11:42)
[2021-10-22] MEDS: DEXAMETHASONE SOD PHOSPHATE 4 MG/ML 1 ML VIAL IVP SCH ×3 (01:22→11:41)
[2021-10-22] MEDS: 0.9% NACL WITH KCL 20 MEQ/L 1,000 ML IV SCH ×2 (07:30→07:37)
[2021-10-22] MEDS: PANTOPRAZOLE 40 MG/10 ML VIAL IV SCH (07:33)
[2021-10-22] MEDS ORDERED: 1: MVI, ADULT NO.4 WITH VIT K 10 ML, THIAMINE 100 MG, FOLIC ACID 1 MG, POTASSIUM CHLORID IV SCH ×6 (08:00)
[2021-10-22] MEDS: ALBUTEROL NEBULIZED 2.5 MG/3 ML INHALATION SCH ×3 (08:50→15:48)
[2021-10-22] MEDS ORDERED: ENOXAPARIN 40 MG/0.4 ML SYRINGE SQ SCH (09:00)
[2021-10-22 09:10] LABS: Basophils # (A) 0.01 X 10*3/uL (0.00-0.10); Basophils % (A) 0.1 %; Eosinophils # (A) 0 X 10*3/uL (0.04-0.35); Eosinophils % (A) 0 %; HGB 11.9 g/dL (12.0-15.0); Immature Grans, Automated 0.4 %; Lymphocytes # (A) 1.26 X 10*3/uL (0.90-5.00); Lymphocytes % (A) 12.1 %; MCH 28.9 pg (27.0-32.0); MCHC 32.2 g/dL (32.0-37.0); MCV 89.8 fL (80.0-97.0); Mean Platelet Volume 11.2 fL (9.5-12.2); Monocytes # (A) 0.23 X 10*3/uL (0.20-1.00); Monocytes % (A) 2.2 %; NRBC Per 100 WBC 0 /100 WBCS (0.0-0.0); Neutrophils # (A) 8.85 X 10*3/uL (1.80-7.70); Neutrophils % (A) 85.2 %; Platelet Count 344 X 10*3/uL (140-440); RBC 4.12 X 10*6/uL (4.10-5.20); RDW 14.1 % (11.5-14.5); WBC 10.39 X 10*3/uL (4.50-10.00)
[2021-10-22 09:29] LABS: African American GFR (CKD) 128.3 (60.0-200.0); Anion Gap 14.1 mmol/L (10.00-18.00); Blood Urea Nitrogen 9.5 mg/dL (9.0-27.0); Calcium 8.4 mg/dL (8.7-10.3); Carbon Dioxide 15.9 mmol/L (20.0-27.5); Non-African American GFR(CKD) 110.7 (60.0-200.0); Phosphorus 1.9 mg/dL (2.4-5.1); Potassium 4.5 mmol/L (3.5-5.5)
--- NOTE | 2021-10-22 11:46 | FL ---
EXAMINATION TYPE: FL UGI DATE OF EXAM: 10/22/2021 LIMITED UGI: CLINICAL HISTORY: Morbid Obesity, gastric sleeve surgery yesterday. TECHNIQUE: Limited UGI-esophagram is performed utilizing 30 oz of Isovue-370. A total of 53 seconds of fluoroscopic time was utilized during procedure and 35 images obtained. COMPARISON: None. FINDINGS: The patient swallowed contrast without difficulty or delay. Esophageal peristalsis and mo tility are within normal limits. There is good flow of contrast along the diaphragmatic hiatus into proximal stomach and mild delay in flow through proximal anastomosis into gastric sleeve. There is go od flow from distal sleeve into pylorus and duodenal sweep. Patient remains asymptomatic. There is no evidence of contrast extravasation to suggest leak. IMPRESSION: No evidence of leak or significant obstruction status post recent gastric sleeve surgery.
[2021-10-22 14:37] VITALS: BP 121/83; PULSE 86; RESP 18; TEMP 97.6
--- NOTE | 2021-10-22 23:48 | P.DS ---
Providers Date of admission: 10/21/2021 Expected date of discharge: 10/22/21 Attending physician: Jessika Guerrier Primary care physician: Mack Sharma - Discharge Diagnosis(es) (1) Morbid obesity due to excess calories Status: Acute (2) Hypertensive heart disease Status: Acute Hospital Course: POSTOPERATIVE DIAGNOSES: 1. Morbid obesity due to excess calories 2. Body mass index of 41.7 3. Hypothyroidism 4. Migraines 5. Hypertensive heart disease 6. Gastroesophageal reflux disease 7. Persistent tachycardia 8. Vitamin D deficiency COURSE: Cherie Caldwell is a 35-year-old female who comes with lifelong morbid obesity. She has completed medical supervised weight loss. As result of her morbid obesity, she comes in with hypertensive heart disease including gastroesophageal reflux disease. She had sleeve gastrectomy. Postoperatively, her pain was well controlled. She was tolerating liquids. Esophagram was negative for leaks. Bariatric dietary instructions were reviewed. Patient was stable for discharge. Vital Signs Temp 97.6 F 10/22/21 14:00 Pulse 86 10/22/21 14:00 Resp 18 10/22/21 14:00 BP 121/83 10/22/21 14:00 Pulse Ox 99 10/22/21 14:00 Intake & Output 10/22/21 10/22/21 10/23/21 06:59 18:59 06:59 Output Total 750 Balance -750 Weight 99.79 kg Output: Urine 750 Other: Voiding Method Toilet # Voids 2 Laboratory Last Values WBC 10.39 X 10*3/uL (4.50-10.00) H 10/22/21 06:03 RBC 4.12 X 10*6/uL (4.10-5.20) 10/22/21 06:03 Hgb 11.9 g/dL (12.0-15.0) L 10/22/21 06:03 Hct 37.0 % (37.2-46.3) L 10/22/21 06:03 MCV 89.8 fL (80.0-97.0) 10/22/21 06:03 MCH 28.9 pg (27.0-32.0) 10/22/21 06:03 MCHC 32.2 g/dL (32.0-37.0) 10/22/21 06:03 RDW 14.1 % (11.5-14.5) 10/22/21 06:03 Plt Count 344 X 10*3/uL (140-440) 10/22/21 06:03 MPV 11.2 fL (9.5-12.2) 10/22/21 06:03 Immature Gran % (Auto) 0.4 % 10/22/21 06:03 Absolute Nucleated RBC 0 X 10*3/uL (0.00-0.00) 10/22/21 06:03 Neutrophils % 85.2 % 10/22/21 06:03 Lymphocytes % 12.1 % 10/22/21 06:03 Monocytes % 2.2 % 10/22/21 06:03 Eosinophils % 0 % 10/22/21 06:03 Basophils % 0.1 % 10/22/21 06:03 Immature Gran # 0.04 X 10*3/uL (0.00-0.04) 10/22/21 06:03 Neutrophils # 8.85 X 10*3/uL (1.80-7.70) H 10/22/21 06:03 Lymphocytes # 1.26 X 10*3/uL (0.90-5.00) 10/22/21 06:03 Monocytes # 0.23 X 10*3/uL (0.20-1.00) 10/22/21 06:03 Eosinophils # 0 X 10*3/uL (0.04-0.35) L 10/22/21 06:03 Basophils # 0.01 X 10*3/uL (0.00-0.10) 10/22/21 06:03 NRBC/100 WBC Diff 0 /100 WBCS (0.0-0.0) 10/22/21 06:03 Sodium 135 mmol/L (135-145) 10/22/21 06:03 Potassium 4.5 mmol/L (3.5-5.5) 10/22/21 06:03 Chloride 105 mmol/L (96-109) 10/22/21 06:03 Carbon Dioxide 15.9 mmol/L (20.0-27.5) L 10/22/21 06:03 Anion Gap 14.10 mmol/L (10.00-18.00) 10/22/21 06:03 BUN 9.5 mg/dL (9.0-27.0) 10/22/21 06:03 Creatinine 0.7 mg/dL (0.6-1.5) 10/22/21 06:03 Est GFR (CKD-EPI)AfAm 128.3 (60.0-200.0) 10/22/21 06:03 Est GFR (CKD-EPI)NonAf 110.7 (60.0-200.0) 10/22/21 06:03 Calcium 8.4 mg/dL (8.7-10.3) L 10/22/21 06:03 Phosphorus 1.9 mg/dL (2.4-5.1) L 10/22/21 06:03 Magnesium 2.0 mg/dL (1.5-2.4) 10/22/21 06:03 Blood Type O Positive 10/14/21 09:03 Blood Type Recheck O Pos 10/14/21 09:03 Bld Type Recheck Status No 10/14/21 09:03 Antibody Screen NEGATIVE 10/14/21 09:03 Spec Expiration Date 10/23/2021 - 230210/14/21 09:03 Pertinent Studies: Esophagram independently reviewed without leaks Procedures: OPERATION: 1. Robotic assisted daVinci Xi laparoscopic sleeve gastrectomy with 40-Norwegian bougie, multiport. 2. Intraoperative esophagogastroduodenoscopy. ANESTHESIA: Gen. local anesthetic ESTIMATED BLOOD LOSS: 10 mL SPECIMENS REMOVED: Sleeve gastrectomy COMPLICATIONS: None. FINDINGS: 1. Negative intraoperative esophagogastrojejunoscopy leak test. 2. No hepatomegaly and no large hiatus hernia. 3. Total of 6 staplers used including 2 - 60 mm greens robot wade and 4 - 60 mm blue robot loads used to create the gastric sleeve. 4. Sleeve gastrectomy, 22 x 4 cm Patient Condition at Discharge: Good Plan - Discharge Summary Discharge Rx Participant: Yes New Discharge Prescriptions: New bisacodyL [Dulcolax] 5 mg PO DAILY PRN #10 tab PRN Reason: Constipation Simethicone 40 mg/0.6 ml Drops [Mylicon Drops] 40 mg PO PCHS PRN #30 ml PRN Reason: Gas Omeprazole [PriLOSEC] 40 mg PO DAILY #30 cap Acetaminophen Tab [Tylenol Tab] 1,000 mg PO Q6HR PRN #30 tablet PRN Reason: Pain Ondansetron Odt [Zofran Odt] 4 mg PO Q8HR PRN #9 tab PRN Reason: Nausea Continue Levothyroxine Sodium [Synthroid] 75 mcg PO DAILY Discharge Medication List Levothyroxine Sodium [Synthroid] 75 mcg PO DAILY 05/08/21 [History] Acetaminophen Tab [Tylenol Tab] 1,000 mg PO Q6HR PRN #30 tablet 10/22/21 [Rx] Omeprazole [PriLOSEC] 40 mg PO DAILY #30 cap 10/22/21 [Rx] Ondansetron Odt [Zofran Odt] 4 mg PO Q8HR PRN #9 tab 10/22/21 [Rx] Simethicone 40 mg/0.6 ml Drops [Mylicon Drops] 40 mg PO PCHS PRN #30 ml 10/22/21 [Rx] bisacodyL [Dulcolax] 5 mg PO DAILY PRN #10 tab 10/22/21 [Rx] [facility] [place] [place] [facility] [place] [facility]25[facility]21 9:00 am Patient Instructions/Handouts: Nutrition after Bariatric Surgery (GEN), Laparoscopic Sleeve Gastrectomy (GEN) Activity/Diet/Wound Care/Special Instructions: Liquid diet only for 2 weeks until November 04October Shower. No soaking in bath tubs 2 weeks until November 04 Continue to use incentive spirometry to prevent pneumonias. Please continue to ambulate at home to prevent blood clots in legs. Please notify your surgeon if you develop nausea and vomiting including new onset of abdominal pain. No lifting over 4 pounds in 4 weeks, November 20 Drink 64 oz of fluid daily. Start protein shakes on . Notify bariatric center for temp over 101.0, increased pain, drainage from incisions. No straws or carbonated beverages. Liquid diet only. Sugar content should be less than 6 g to avoid dumping syndrome. Take MOM for constipation. CRUSH, OPEN, OR CUT TABLETS LARGER THAN A SIZE OF A TIC TAC Discharge Disposition: HOME SELF-CARE
== END 2021-10-22 18:50 | disposition home or self-care (01) ==
LOC: OR 07:43 → 4SSUR 10:59 → OR 10-22 18:50
PROVIDERS: ATTEND Surgery Plastic and Reconstructive Surgery
DX: E66.01 Morbid (severe) obesity due to excess calories (principal); E03.9 Hypothyroidism, unspecified; E55.9 Vitamin D deficiency, unspecified; G43.909 Migraine, unspecified, not intractable, without status migrainosus; I11.9 Hypertensive heart disease without heart failure; K21.9 Gastro-esophageal reflux disease without esophagitis; K29.50 Unspecified chronic gastritis without bleeding; Z68.41 Body mass index [BMI] 40.0-44.9, adult; Z82.49 Family history of ischemic heart disease and other diseases of the circulatory system; Z83.49 Family history of other endocrine, nutritional and metabolic diseases; Z83.79 Family history of other diseases of the digestive system; Z87.891 Personal history of nicotine dependence; Z79.899 Other long term (current) drug therapy
CPT/HCPCS: 43775; S2900; 74240; 80051; 81025; 82310; 82565; 83735; 84100; 84520; 85025; 86850; 86900; 86901; 88307

== ENCOUNTER → 2021-10-25 | Outpatient (CLI) | payer BC ==
[2021-10-25 10:02] VITALS: BP 135/86; PULSE 106; TEMP 98.2; BMI 37.5
--- NOTE | 2021-10-25 10:55 | P.BASOAP ---
Subjective Progress Note Date: 10/25/21 DATE OF SERVICE: 10/25/2021 CHIEF COMPLAINT: Status post sleeve gastrectomy HISTORY OF PRESENT ILLNESS: Cherie Caldwell is a 35-year-old female status post sleeve gastrectomy, 10/21/2021. She is postop day 4. She complains of appropriate left upper quadrant incisional pain. Urine output is adequate per discussion. She feels well hydrated. At height of 5 feet 3 inches, her ideal body weight is 140 pounds. Her highest personal weight 235 pounds, BMI 41.7. She comes in 212 pounds from 234 pounds, 3 months ago. She has lost 17 pounds in 3 months. Her body mass index is 37.6. She is 72 pounds overweight. PHYSICAL EXAM: VITAL SIGNS: Height 5 foot 3 inches, weight 212 pounds. BMI 37.6 Vital Signs Temp 98.2 F 10/25/21 09:59 Pulse 106 H 10/25/21 09:59 Resp BP 135/86 10/25/21 09:59 Pulse Ox Intake & Output 10/25/21 10/26/21 10/26/21 18:59 06:59 18:59 Weight 96.162 kg GENERAL: Well-developed in no acute distress. HEENT: No scleral icterus. Extraocular movements grossly intact. Hears conversational speech. No nasal drainage. NECK: Supple without lymphadenopathy. CHEST: Nonlabored respirations with equal bilateral excursions. CARDIOVASCULAR: Tachycardic. Distal 2+ pulses. ABDOMEN: Obese, soft. Incisions clean dry and intact. No cellulitis. No infection. Mild skin dimpling of the left upper quadrant described. MUSCULOSKELETAL: No clubbing, cyanosis. NEURO: No focal or lateralizing signs. Cranial nerves 2 through 12 grossly within normal limits. PSYCH: Appropriate affect. Alert and oriented to person, place and time. SKIN: Good skin turgor. Well perfused. Final Pathologic Diagnosis PORTION OF STOMACH, SLEEVE GASTRECTOMY: Benign gastric tissue with focal chronic gastritis. Morbid obesity clinically. No Helicobacter organisms seen on H+E staining. ASSESSMENT: 1. Morbid obesity due to excess calories 2. Body mass index of 41.7 to 37.6 3. Hypothyroidism 4. Migraines 5. Hypertensive heart disease 6. Gastroesophageal reflux disease 7. Pre-existing persistent tachycardia 8. Vitamin D deficiency 9. Status post sleeve gastrectomy PLAN: 1. Risk of dehydration including signs and symptoms reviewed. 2. Transition to full liquids including protein shakes described. 3. Follow up in 1 week reviewed. 4. Wound care instructions including Hibiclens soap and wear abdominal binder reviewed. Objective - Vital Signs Vital signs: Vital Signs Temp 98.2 F 10/25/21 09:59 Pulse 106 H 10/25/21 09:59 Resp BP 135/86 10/25/21 09:59 Pulse Ox Intake & Output 10/24/21 10/25/21 10/25/21 18:59 06:59 18:59 Weight 96.162 kg Assessment/Plan Plan: Date: 10/25/21 Initial Weight: 103.873 kg Initial BMI: 40.5 Current Weight: 96.162 kg Current BMI: 37.5 Type of Surgery: Total Volume in Band: Previous Volume: Volume Removed: Volume Added: Band Size:
== END | disposition home or self-care (01) ==
LOC: BARWHC3 08:42
PROVIDERS: ATTEND Surgery Plastic and Reconstructive Surgery
DX: E66.01 Morbid (severe) obesity due to excess calories (principal); E03.9 Hypothyroidism, unspecified; G43.909 Migraine, unspecified, not intractable, without status migrainosus; I11.9 Hypertensive heart disease without heart failure; K21.9 Gastro-esophageal reflux disease without esophagitis; E55.9 Vitamin D deficiency, unspecified; Z98.890 Other specified postprocedural states; Z68.41 Body mass index [BMI] 40.0-44.9, adult
CPT/HCPCS: 99211

== ENCOUNTER → 2021-11-01 | Outpatient (CLI) | payer BC ==
[2021-11-01 09:49] VITALS: BP 125/84; PULSE 101; TEMP 98.2; BMI 36.5
--- NOTE | 2021-11-01 13:06 | P.BASOAP ---
Subjective Progress Note Date: 11/01/21 DATE OF SERVICE: 11/01/2021 CHIEF COMPLAINT: Status post sleeve gastrectomy HISTORY OF PRESENT ILLNESS: Cherie Caldwell is a 35-year-old female status post sleeve gastrectomy, 10/21/2021. She is 2 weeks out. Clinically she is doing well. No reports of abdominal pain. No reflux. Her protein intake is 45 g daily and under target of 75 g as advised. She is not keeping a food diary internal. She is unaware amount of water intake. At height of 5 feet 3 inches, her ideal body weight is 140 pounds. Her highest personal weight 235 pounds, BMI 41.7. She comes in 205 pounds from 212 pounds, 1 week ago. She has lost 6 pounds in 1 week. Her body mass index is 36.5. Her lifetime weight loss is 29 pounds. Lifetime percent excess weight loss of 31%. She is 66 pounds overweight. PHYSICAL EXAM: VITAL SIGNS: Height 5 foot 3 inches, weight 205 pounds. BMI 36.5 Vital Signs Temp 98.2 F 11/01/21 09:14 Pulse 101 H 11/01/21 09:14 Resp BP 125/84 11/01/21 09:14 Pulse Ox Intake & Output 11/01/21 11/01/21 11/02/21 06:59 18:59 06:59 Weight 93.44 kg GENERAL: Well-developed in no acute distress. HEENT: No scleral icterus. Extraocular movements grossly intact. Hears conversational speech. No nasal drainage. NECK: Supple without lymphadenopathy. CHEST: Nonlabored respirations with equal bilateral excursions. CARDIOVASCULAR: Tachycardic. Distal 2+ pulses. ABDOMEN: No cellulitis or infection MUSCULOSKELETAL: No clubbing, cyanosis. NEURO: No focal or lateralizing signs. Cranial nerves 2 through 12 grossly within normal limits. PSYCH: Appropriate affect. Alert and oriented to person, place and time. SKIN: Good skin turgor. Well perfused. ASSESSMENT: 1. Morbid obesity due to excess calories 2. Body mass index of 41.7 to 36.5 3. Hypothyroidism 4. Migraines 5. Hypertensive heart disease 6. Gastroesophageal reflux disease 7. Pre-existing persistent tachycardia 8. Vitamin D deficiency 9. Status post sleeve gastrectomy PLAN: 1. DVT prophylaxis reinforced. 2. Adequate protein intake reinforced with food journal such as [employer]itness Pal. 3. Follow-up in 1 month post-op 4. Overall, tachycardia improved from prior to surgery. Objective - Vital Signs Vital signs: Vital Signs Temp 98.2 F 11/01/21 09:14 Pulse 101 H 11/01/21 09:14 Resp BP 125/84 11/01/21 09:14 Pulse Ox Intake & Output 10/31/21 11/01/21 11/01/21 18:59 06:59 18:59 Weight 93.44 kg Assessment/Plan Plan: Date: 11/01/21 Initial Weight: 103.873 kg Initial BMI: 40.5 Current Weight: 93.44 kg Current BMI: 36.5 Type of Surgery: Total Volume in Band: Previous Volume: Volume Removed: Volume Added: Band Size:
== END | disposition home or self-care (01) ==
LOC: BARWHC3 08:35
PROVIDERS: ATTEND Surgery Plastic and Reconstructive Surgery
DX: E66.01 Morbid (severe) obesity due to excess calories (principal); Z68.41 Body mass index [BMI] 40.0-44.9, adult; E03.9 Hypothyroidism, unspecified; G43.909 Migraine, unspecified, not intractable, without status migrainosus; I11.9 Hypertensive heart disease without heart failure; K21.9 Gastro-esophageal reflux disease without esophagitis; R00.0 Tachycardia, unspecified; E55.9 Vitamin D deficiency, unspecified; Z98.890 Other specified postprocedural states
CPT/HCPCS: 99211

== ENCOUNTER → 2022-01-15 | Outpatient (CLI) | payer BC ==
[2022-01-15 13:17] VITALS: BP 147/83; PULSE 80; TEMP 98.4; BMI 34.0
--- NOTE | 2022-01-15 13:42 | P.BASOAP ---
Subjective Progress Note Date: 01/15/22 She is 3 months out. Slow weight loss. Less than 40 grams protein daily. Labs reviewed. Increase to 75 grams. Add protein shake. Get diary. Objective - Vital Signs Vital signs: Vital Signs Temp 98.4 F 01/15/22 13:13 Pulse 80 01/15/22 13:13 Resp BP 147/83 01/15/22 13:13 Pulse Ox FiO2 Intake & Output 01/14/22 01/15/22 01/15/22 18:59 06:59 18:59 Weight 87.09 kg Assessment/Plan Plan: Date: 01/15/22 Initial Weight: 103.873 kg Initial BMI: 40.5 Current Weight: 87.09 kg Current BMI: 34.0 Type of Surgery: Total Volume in Band: Previous Volume: Volume Removed: Volume Added: Band Size:
== END | disposition home or self-care (01) ==
LOC: BARWHC3 12:42
PROVIDERS: ATTEND Surgery Plastic and Reconstructive Surgery
DX: E66.01 Morbid (severe) obesity due to excess calories (principal); Z71.3 Dietary counseling and surveillance
CPT/HCPCS: 97803; 99211

== ENCOUNTER → 2022-01-22 | Outpatient (CLI) | payer BC ==
--- NOTE | 2022-01-23 17:32 | MM ---
Reason for Exam: Screening (asymptomatic). Baseline mammogram. Patient History: Menarche at age 9. First Full-Term at age 28. Risk Values: Ashtyn 5 year model risk: 0.5%. NCI Lifetime model risk: 12.3%. Prior Study Comparison: Patient's first Mammogram. Tissue Density: There are scattered fibroglandular densities. Findings: Analyzed By CAD. No significant mass, suspicious microcalcification, or other discrete abnormality is seen. Overall Assessment: Negative, BI-RAD 1 Management: Screening Mammogram of both breasts at age 39. 1. Patient should continue monthly self breast exams. 2. A clinical breast exam by your physician is recommended on an annual basis. 3. This exam should not preclude additional follow-up of suspicious palpable abnormalities. Electronically signed and approved by: Satinder Mendes M.D. Radiologist
== END | disposition home or self-care (01) ==
LOC: RADMAMWWP 09:24
PROVIDERS: ATTEND Family Medicine
DX: Z12.39 Encounter for other screening for malignant neoplasm of breast (principal)
CPT/HCPCS: 77063; 77067

== ENCOUNTER → 2022-01-28 | Outpatient (CLI) | payer BC ==
[2022-01-28 09:02] LABS: Partial Thromboplastin Time 26.3 sec (22.0-30.0); Prothrombin Time 10.7 sec (9.0-12.0)
[2022-01-28 10:23] LABS: HCT 41.4 % (37.2-46.3); HGB 13.2 g/dL (12.0-15.0); MCH 28.1 pg (27.0-32.0); MCHC 31.9 g/dL (32.0-37.0); MCV 88.1 fL (80.0-97.0); Mean Platelet Volume 10.2 fL (9.5-12.2); NRBC Per 100 WBC 0 /100 WBCS (0.0-0.0); Platelet Count 342 X 10*3/uL (140-440); RDW 13.2 % (11.5-14.5); WBC 5.37 X 10*3/uL (4.50-10.00)
[2022-01-28 10:51] LABS: % Iron Saturation 10.47 (12.00-45.00); ALT 13 U/L (8-44); AST 19 U/L (13-35); African American GFR (CKD) 109.2 (60.0-200.0); Albumin 4.4 g/dL (3.8-4.9); Albumin/Globulin Ratio 1.69 (1.60-3.17); Alkaline Phosphatase 72 U/L (41-126); BUN/Creat Ratio 15.25 Ratio (12.00-20.00); Blood Urea Nitrogen 12.2 mg/dL (9.0-27.0); Calcium 9.3 mg/dL (8.7-10.3); Carbon Dioxide 22.9 mmol/L (20.0-27.5); Chloride 105 mmol/L (96-109); Ferritin 16.1 ng/mL (10.0-291.0); Globulin 2.6 g/dL (1.6-3.3); Glucose 97 mg/dL (70-110); Iron 38 ug/dL (50-170); Non-African American GFR(CKD) 94.2 (60.0-200.0); Phosphorus 3.6 mg/dL (2.4-5.1); Potassium 4.1 mmol/L (3.5-5.5); Sodium 140 mmol/L (135-145); Total Iron Binding Capacity 367 ug/dL (228-460)
[2022-01-28 10:57] LABS: Chol/HDL Ratio 3.73 Ratio; LDL Cholesterol,Calculated 86.6 mg/dL (0.0-131.0); Prealbumin 20.3 mg/dL (18.0-42.0); VLDL Calculation 18.14 mg/dL (5.00-40.00)
[2022-01-30 06:50] LABS: Vit B1(Thiamine) 58 ug/L (38-122)
== END | disposition home or self-care (01) ==
LOC: LABWHC1 08:21
PROVIDERS: ATTEND Surgery Plastic and Reconstructive Surgery
DX: E66.01 Morbid (severe) obesity due to excess calories (principal); E89.1 Postprocedural hypoinsulinemia; D50.8 Other iron deficiency anemias; D50.9 Iron deficiency anemia, unspecified; K91.2 Postsurgical malabsorption, not elsewhere classified; E44.0 Moderate protein-calorie malnutrition; E44.1 Mild protein-calorie malnutrition; E45 Retarded development following protein-calorie malnutrition; E55.9 Vitamin D deficiency, unspecified; K74.1 Hepatic sclerosis; N19 Unspecified kidney failure; T56.894A Toxic effect of other metals, undetermined, initial encounter; K50.90 Crohn's disease, unspecified, without complications; E46 Unspecified protein-calorie malnutrition
CPT/HCPCS: 36415; 80053; 80061; 82306; 82525; 82607; 82728; 82746; 83036; 83540; 83550; 83735; 83970; 84100; 84134; 84255; 84425; 84443; 84590; 84630; 85027; 85610; 85730

== ENCOUNTER → 2022-07-23 | Outpatient (CLI) | payer BC ==
[2022-07-23 12:57] VITALS: BP 136/84; PULSE 91; TEMP 98.2; BMI 32.1
--- NOTE | 2022-07-23 14:12 | P.BASOAP ---
Subjective Progress Note Date: 07/23/22 The patient is status post sleeve gastrectomy now 9 months out. Her [facility]. She did not produce a dietary journal. No reports of abdominal pain. Patient advised to start taking iron with vitamin C supplement or fruit juice. Recommend dietary journal with follow-up in 2-3 weeks. Last reviewed. Otherwise doing well. Objective - Vital Signs Vital signs: Vital Signs Temp 98.2 F 07/23/22 12:54 Pulse 91 07/23/22 12:54 Resp BP 136/84 07/23/22 12:54 Pulse Ox FiO2 Intake & Output 07/22/22 07/23/22 07/23/22 18:59 06:59 18:59 Weight 82.1 kg Assessment/Plan Plan: Date: 07/23/22 Initial Weight: 103.873 kg Initial BMI: 40.5 Current Weight: 82.1 kg Current BMI: 32.1 Type of Surgery: Total Volume in Band: Previous Volume: Volume Removed: Volume Added: Band Size:
[2022-07-23 15:13] LABS: Prothrombin Time 10.4 sec (9.0-12.0)
[2022-07-23 19:24] LABS: HCT 44.6 % (37.2-46.3); HGB 14.3 g/dL (12.0-15.0); MCH 29.4 pg (27.0-32.0); MCHC 32.1 g/dL (32.0-37.0); MCV 91.8 fL (80.0-97.0); Mean Platelet Volume 10.5 fL (9.5-12.2); NRBC Per 100 WBC 0 /100 WBCS (0.0-0.0); Platelet Count 368 X 10*3/uL (140-440); RBC 4.86 X 10*6/uL (4.10-5.20); RDW 14.1 % (11.5-14.5); WBC 7.27 X 10*3/uL (4.50-10.00)
[2022-07-23 19:52] LABS: % Iron Saturation 24.26 (12.00-45.00); Ferritin 35.3 ng/mL (10.0-291.0); Iron 93 ug/dL (50-170); Magnesium 2.1 mg/dL (1.5-2.4); Phosphorus 4.3 mg/dL (2.4-5.1); Total Iron Binding Capacity 385 ug/dL (228-460)
[2022-07-23 19:58] LABS: ALT 18 U/L (8-44); AST 22 U/L (13-35); African American GFR (CKD) 94.7 (60.0-200.0); Albumin 4.9 g/dL (3.8-4.9); Albumin/Globulin Ratio 2.04 (1.60-3.17); Alkaline Phosphatase 79 U/L (41-126); BUN/Creat Ratio 12.44 Ratio (12.00-20.00); Blood Urea Nitrogen 11.2 mg/dL (9.0-27.0); Calcium 9.8 mg/dL (8.7-10.3); Carbon Dioxide 25.6 mmol/L (20.0-27.5); Chloride 100 mmol/L (96-109); Globulin 2.4 g/dL (1.6-3.3); Glucose 86 mg/dL (70-110); Non-African American GFR(CKD) 81.7 (60.0-200.0); Potassium 4.7 mmol/L (3.5-5.5); Sodium 137 mmol/L (135-145); Total Protein 7.3 g/dL (6.2-8.2)
[2022-07-23 20:07] LABS: Chol/HDL Ratio 4.09 Ratio; LDL Cholesterol,Calculated 126.6 mg/dL (0.0-131.0); Prealbumin 25.8 mg/dL (18.0-42.0)
[2022-07-25 06:05] LABS: Vitamin A 67 ug/dL (38-106)
[2022-07-25 06:36] LABS: Vit B1(Thiamine) 77 ug/L (38-122)
== END ==
LOC: BARWHC3 12:43
PROVIDERS: ATTEND Surgery Plastic and Reconstructive Surgery
DX: Z71.3 Dietary counseling and surveillance (principal); E66.01 Morbid (severe) obesity due to excess calories; E50.8 Other manifestations of vitamin A deficiency; D50.9 Iron deficiency anemia, unspecified; K90.89 Other intestinal malabsorption; K90.9 Intestinal malabsorption, unspecified; E55.9 Vitamin D deficiency, unspecified; K74.1 Hepatic sclerosis; N19 Unspecified kidney failure; T56.894A Toxic effect of other metals, undetermined, initial encounter; K50.90 Crohn's disease, unspecified, without complications; Z68.32 Body mass index [BMI] 32.0-32.9, adult; Z88.1 Allergy status to other antibiotic agents; Z88.2 Allergy status to sulfonamides; F17.200 Nicotine dependence, unspecified, uncomplicated
CPT/HCPCS: 80053; 80061; 82306; 82525; 82607; 82728; 82746; 83540; 83550; 83735; 83970; 84100; 84134; 84255; 84425; 84443; 84590; 84630; 85027; 85610; 85730; 97803; 99211

== ENCOUNTER → 2022-08-06 | Outpatient (CLI) | payer BC ==
[2022-08-06 14:22] VITALS: BP 119/80; PULSE 91; TEMP 98.4; BMI 31.3
--- NOTE | 2022-08-06 15:06 | P.BASOAP ---
Subjective Progress Note Date: 08/06/22 In heartburn. NO abdominal pain. No dysphagia. Protein intake of 70 to 90 g daily. Drinking over 64 oz daily. Objective - Vital Signs Vital signs: Vital Signs Temp 98.4 F 08/06/22 14:19 Pulse 91 08/06/22 14:19 Resp BP 119/80 08/06/22 14:19 Pulse Ox FiO2 Intake & Output 08/05/22 08/06/22 08/06/22 18:59 06:59 18:59 Weight 80.286 kg Assessment/Plan Plan: Date: 08/06/22 Initial Weight: 103.873 kg Initial BMI: 40.5 Current Weight: 80.286 kg Current BMI: 31.3 Type of Surgery: Total Volume in Band: Previous Volume: Volume Removed: Volume Added: Band Size:
== END ==
LOC: BARWHC3 13:43
PROVIDERS: ATTEND Surgery Plastic and Reconstructive Surgery
DX: E66.01 Morbid (severe) obesity due to excess calories (principal); Z53.9 Procedure and treatment not carried out, unspecified reason
CPT/HCPCS: 99211

== ENCOUNTER → 2022-10-22 | Outpatient (CLI) | payer BC ==
[2022-10-22 14:09] VITALS: BP 126/86; PULSE 96; TEMP 97.8; BMI 31.1
--- NOTE | 2022-10-22 14:38 | P.BASOAP ---
Subjective Progress Note Date: 10/22/22 She is tracking her food. She has dysphagia with pills of the throat. SHe has occasional sore throat with waking up. Recommend upper endoscopy. Recommend upper labs. Omeprazole prescribed. Objective - Vital Signs Vital signs: Vital Signs Temp 97.8 F 10/22/22 14:06 Pulse 96 10/22/22 14:06 Resp BP 126/86 10/22/22 14:06 Pulse Ox FiO2 Intake & Output 10/21/22 10/22/22 10/22/22 18:59 06:59 18:59 Weight 79.832 kg Assessment/Plan Plan: Date: 10/22/22 Initial Weight: 103.873 kg Initial BMI: 40.5 Current Weight: 79.832 kg Current BMI: 31.1 Type of Surgery: Total Volume in Band: Previous Volume: Volume Removed: Volume Added: Band Size:
== END ==
LOC: BARWHC3 13:23
PROVIDERS: ATTEND Surgery Plastic and Reconstructive Surgery
DX: E66.01 Morbid (severe) obesity due to excess calories (principal); Z68.31 Body mass index [BMI] 31.0-31.9, adult; Z88.1 Allergy status to other antibiotic agents; Z88.2 Allergy status to sulfonamides; F17.200 Nicotine dependence, unspecified, uncomplicated
CPT/HCPCS: 97803; 99211

== ENCOUNTER → 2022-10-24 | Outpatient (CLI) | payer BC ==
[2022-10-24 09:50] LABS: Partial Thromboplastin Time 25.6 sec (22.0-30.0); Prothrombin Time 10.7 sec (9.0-12.0)
[2022-10-24 15:47] LABS: HCT 48.1 % (37.2-46.3); HGB 15.7 g/dL (12.0-15.0); MCH 30.2 pg (27.0-32.0); MCHC 32.6 g/dL (32.0-37.0); MCV 92.5 fL (80.0-97.0); Mean Platelet Volume 10.1 fL (9.5-12.2); NRBC Per 100 WBC 0 /100 WBCS (0.0-0.0); Platelet Count 382 X 10*3/uL (140-440); WBC 7.24 X 10*3/uL (4.50-10.00)
[2022-10-24 16:19] LABS: % Iron Saturation 22.11 (12.00-45.00); ALT 15 U/L (8-44); AST 16 U/L (13-35); Albumin 4.9 g/dL (3.8-4.9); Albumin/Globulin Ratio 2.04 (1.60-3.17); Alkaline Phosphatase 77 U/L (41-126); BUN/Creat Ratio 15.33 Ratio (12.00-20.00); Blood Urea Nitrogen 13.8 mg/dL (9.0-27.0); Carbon Dioxide 23.3 mmol/L (20.0-27.5); Chloride 103 mmol/L (96-109); Ferritin 67.9 ng/mL (10.0-291.0); Globulin 2.4 g/dL (1.6-3.3); Glucose 78 mg/dL (70-110); Iron 81 ug/dL (50-170); Magnesium 1.9 mg/dL (1.5-2.4); Non-African American GFR(CKD) 81.1 (60.0-200.0); Phosphorus 3.9 mg/dL (2.4-5.1); Sodium 140 mmol/L (135-145); Total Iron Binding Capacity 367 ug/dL (228-460); Total Protein 7.3 g/dL (6.2-8.2)
[2022-10-24 17:36] LABS: LDL Cholesterol,Calculated 101.1 mg/dL (0.0-131.0); Prealbumin 29.5 mg/dL (18.0-42.0)
== END | disposition home or self-care (01) ==
LOC: LABWHC1 09:10
PROVIDERS: ATTEND Surgery Plastic and Reconstructive Surgery
DX: E66.01 Morbid (severe) obesity due to excess calories (principal); D50.8 Other iron deficiency anemias; E44.0 Moderate protein-calorie malnutrition; E44.1 Mild protein-calorie malnutrition; E45 Retarded development following protein-calorie malnutrition; E55.9 Vitamin D deficiency, unspecified; K74.1 Hepatic sclerosis; N19 Unspecified kidney failure; T56.894A Toxic effect of other metals, undetermined, initial encounter; K50.90 Crohn's disease, unspecified, without complications
CPT/HCPCS: 36415; 80053; 80061; 82306; 82525; 82607; 82728; 82746; 83036; 83540; 83550; 83735; 83970; 84100; 84134; 84255; 84425; 84443; 84590; 84630; 85027; 85610; 85730

== ENCOUNTER 2022-11-17 07:06 | Day surgery (SDC) | payer BC ==
[2022-11-17] MEDS ORDERED: LACTATED RINGERS 1,000 ML IV SCH (07:14)
[2022-11-17] MEDS ORDERED: LIDOCAINE 1% (10MG/ML) FOR IV START INTRADERMA PRN (07:14)
--- NOTE | 2022-11-17 07:29 | P.GSHP ---
History of Present Illness H&P Date: 11/17/22 CHIEF COMPLAINT: GERD HISTORY OF PRESENT ILLNESS: The patient is a 37-year-old female who presents reports gastroesophageal reflux disease. Upper endoscopy was offered for further evaluation and management. PAST MEDICAL HISTORY: Please see list. PAST SURGICAL HISTORY: Please see list. MEDICATIONS: Please see list. ALLERGIES: Please see list. SOCIAL HISTORY: No illicit drug use FAMILY HISTORY: No reports of Crohn disease or ulcerative colitis. REVIEW OF ORGAN SYSTEMS: CONSTITUTIONAL: No reports of fevers or chills. GI: Denies any blood in stools or constipation. PHYSICAL EXAM: VITAL SIGNS: Stable GENERAL: Well-developed and pleasant in no acute distress. HEENT: No scleral icterus. Extraocular movements grossly intact. Moist buccal mucosa. NECK: Supple without lymphadenopathy. CHEST: Unlabored respirations. Equal bilateral excursions. CARDIOVASCULAR: Regular rate and rhythm. Distal 2+ pulses. ABDOMEN: Soft, nondistended. MUSCULOSKELETAL: No clubbing, cyanosis, or edema. ASSESSMENT: 1. Gastroesophageal reflux disease PLAN: 1. Recommend proceeding with an upper endoscopy Past Medical History Past Medical History: GERD/Reflux, Hypertension, Skin Disorder, Thyroid Disorder Additional Past Medical History / Comment(s): History Migraines. hypothyroidism. recent dysphagia to some foods & her vitamins, had pre-eclampsia during , has never otherwise taken med. for htn., hx. psoriasis History of Any Multi-Drug Resistant Organisms: None Reported Past Surgical History: Bariatric Surgery, Section Additional Past Surgical History / Comment(s): wisdom teeth extractions . c section X2. sleeve gastrectomy 10-21-21 Past Anesthesia/Blood Transfusion Reactions: No Reported Reaction Smoking Status: Former smoker - Past Family History Mother Family Medical History: Hypertension, Rheumatoid Arthritis (RA), Thyroid Disorder Father Family Medical History: GI Bleed, Hypertension, Rheumatoid Arthritis (RA) Medications and Allergies Home Medications Medication Instructions Recorded Confirmed Type Levothyroxine Sodium [Synthroid] 75 mcg PO DAILY 05/08/21 11/13/22 History Calcium Citrate 250 mg PO DAILY 07/23/22 11/13/22 History Ferrous Sulfate [Feosol] 325 mg PO DAILY 07/23/22 11/13/22 History Multivitamins, Thera [Multivitamin 1 tab PO DAILY 07/23/22 11/13/22 History (formulary)] Ascorbic Acid [Vitamin C] 1,000 mg PO DAILY 08/06/22 11/13/22 History Atomoxetine HCl [Strattera] 80 mg PO QAM 10/22/22 11/13/22 History Allergies Allergy/AdvReac Type Severity Reaction Status Date / Time azithromycin Allergy Rash/Hives Verified 11/13/22 11:59 [From Zithromax Z-Jose Angel] erythromycin ethylsuccinate Allergy Rash/Hives Verified 11/13/22 11:59 [From Pediazole] sulfisoxazole acetyl Allergy Rash/Hives Verified 11/13/22 11:59 [From Pediazole]
[2022-11-17] MEDS ORDERED: PROPOFOL 10 MG/ML 20 ML VIAL IV ONE (07:30)
[2022-11-17] MEDS ORDERED: LIDOCAINE 2% INJ 20 MG/ML (2 ML VIAL) ONE (07:30)
[2022-11-17 07:34] VITALS: RESP 16; TEMP 97.3
[2022-11-17 07:49] VITALS: BP 106/62
--- NOTE | 2022-11-17 07:51 | P.PCN ---
Date of Procedure: 11/17/22 Description of Procedure: PREOPERATIVE DIAGNOSIS: Gastroesophageal reflux disease Dysphagia History of sleeve gastrectomy POSTOPERATIVE DIAGNOSIS: Upper esophageal stenosis Gastritis OPERATION: Esophagogastroduodenoscopy with rigid dilator over the guidewire 51 Fr with dilation Esophagogastroduodenoscopy with cold forceps biopsies stomach/antrum and duodenum SURGEON: Jessika Guerrier MD ANESTHESIA: MAC. INDICATIONS: The patient is a 37-year-old female who presents with a history of gastroesoph ageal reflux disease with dysphagia risks of the procedure were described. Informed consent was obtained. DESCRIPTION: The patient was brought into the endoscopy suite and laid in the left lateral de cubitus position. After a timeout was confirmed, the procedure was initiated. An Olympus gastroscope was passed into the posterior oropharynx where an upper esophageal stenosis was identified. The scope was passed down to the distal esophagus. To address the upper esophageal stenosis, rigid dilator over guidewire was selected. Next using an Romanian rigid dilator, a guidewire was placed through the gastroscope. Next the scope was withdrawn. A 51-[place] rigid Romanian dilator was passed carefully along the posterior oropharynx to 40 cm and left in place for 2-3 minutes stretch. The dilator was withdrawn including the guidewire. The scope was reentered along the posterior oropharynx with no findings of full- thickness tear of the upper esophageal sphincter. Additional findings below. Within the stomach, sleeve gastrectomy with adequate reservoir was identified without stenosis. LA grade B erosive esophagitis was identified. No full-thickness injury was encountered. The GI tract was desufflated. The patient tolerated the procedure well. FINDINGS: Upper esophageal stenosis dilated 51-[place] Citizen rigid dilator Diaphragmatic hiatus at 35 cm from the incisors Squamocolumnar junction 35 cm from the incisors. Gastritis along the gastric body and fundus cold forceps biopsies obtained Duodenum with cold forceps biopsies obtained LA grade B erosive esophagitis RECOMMENDATIONS: Omeprazole 40 mg daily for 2 weeks Repeat upper endoscopy as needed Plan - Discharge Summary Discharge Rx Participant: No New Discharge Prescriptions: New Omeprazole [PriLOSEC] 40 mg PO DAILY #14 cap Continue Levothyroxine Sodium [Synthroid] 75 mcg PO DAILY Ferrous Sulfate [Iron (65 MG Elemental)] 325 mg PO DAILY Calcium Citrate 250 mg PO DAILY Multivitamins, Thera [Multivitamin (formulary)] 1 tab PO DAILY Ascorbic Acid [Vitamin C] 1,000 mg PO DAILY Atomoxetine HCl [Strattera] 80 mg PO QAM Discharge Medication List Levothyroxine Sodium [Synthroid] 75 mcg PO DAILY 05/08/21 [History] Calcium Citrate 250 mg PO DAILY 07/23/22 [History] Ferrous Sulfate [Iron (65 MG Elemental)] 325 mg PO DAILY 07/23/22 [History] Multivitamins, Thera [Multivitamin (formulary)] 1 tab PO DAILY 07/23/22 [History] Ascorbic Acid [Vitamin C] 1,000 mg PO DAILY 08/06/22 [History] Atomoxetine HCl [Strattera] 80 mg PO QAM 10/22/22 [History] Omeprazole [PriLOSEC] 40 mg PO DAILY #14 cap 11/17/22 [Rx] Follow up [facility]ment(s[facility] [facility] [place] Patient Instructions/Handouts: Esophageal Dilation (DC) Activity/Diet/Wound Care/Special Instructions: Diet as tolerated Discharge Disposition: HOME SELF-CARE
[2022-11-17 08:08] VITALS: PULSE 82
== END 2022-11-17 09:00 | disposition home or self-care (01) ==
LOC: ORWHC2ENDO 07:06
PROVIDERS: ATTEND Surgery Plastic and Reconstructive Surgery
DX: K29.50 Unspecified chronic gastritis without bleeding (principal); K21.9 Gastro-esophageal reflux disease without esophagitis; K22.2 Esophageal obstruction; E03.9 Hypothyroidism, unspecified; I10 Essential (primary) hypertension; Z98.84 Bariatric surgery status; Z83.49 Family history of other endocrine, nutritional and metabolic diseases; Z98.891 History of uterine scar from previous surgery; Z98.890 Other specified postprocedural states; Z87.891 Personal history of nicotine dependence; Z82.49 Family history of ischemic heart disease and other diseases of the circulatory system; Z83.79 Family history of other diseases of the digestive system; Z88.2 Allergy status to sulfonamides; Z79.899 Other long term (current) drug therapy
CPT/HCPCS: 81025; 88305; 43239; 43248; J2704; J2001; 43249

== ENCOUNTER → 2024-05-16 | Outpatient (CLI) | payer OTHER ==
--- NOTE | 2024-05-16 15:59 | XR ---
Left ankle. HISTORY: Pain. COMPARISON: None. TECHNIQUE: 3 views left ankle were obtained. FINDINGS: There is no fracture, dislocation, intraosseous, intra-articular soft tissue abnormality. IMPRESSION: No significant abnormality seen. [facility], , 05/16/2024 3:57 PM
--- NOTE | 2024-05-16 16:00 | XR ---
Left knee. HISTORY: Pain following fall. COMPARISON: None TECHNIQUE: 3 views left knee were obtained. Left hand. HISTORY: Pain following trauma. COMPARISON: None TECHNIQUE: 3 views left hand were obtained. FINDINGS: There is no fracture, dislocation, intraosseous or intra-articular abnormality. The soft tissues are normal. IMPRESSION: No significant abnormality seen. [facility], Workstation: [email or web address], 05/16/2024 3:58 PM
--- NOTE | 2024-05-16 16:01 | XR ---
Left femur. HISTORY: Pain following fall. COMPARISON: None. TECHNIQUE: 4 views of the left femur were obtained. FINDINGS: There is no fracture, dislocation or focal intraosseous abnormality. The soft tissues are unremarkabl e. IMPRESSION: No significant abnormality seen. [facility], , 05/16/2024 3:59 PM
== END | disposition home or self-care (01) ==
LOC: RADXRMAIN 15:13
PROVIDERS: ATTEND Emergency Medicine
DX: S80.02XA Contusion of left knee, initial encounter (principal); S93.402A Sprain of unspecified ligament of left ankle, initial encounter; S76.911A Strain of unspecified muscles, fascia and tendons at thigh level, right thigh, initial encounter; X58.XXXA Exposure to other specified factors, initial encounter

== ENCOUNTER → 2024-08-19 | Outpatient (CLI) | payer BC ==
--- NOTE | 2024-08-19 11:33 | US ---
EXAMINATION TYPE: US gallbladder DATE OF EXAM: 08/19/2024 COMPARISON: US(02/20/2021) CLINICAL INDICATION: Female, 39 years old with history of R10.11 RIGHT UPPER QUADRANT PAIN R10.13 EPI PAIN; TECHNIQUE: Grayscale and color Doppler imaging of the right upper quadrant. FINDINGS: EXAM MEASUREMENTS: Liver Length: 15.3 cm Gallbladder Wall: 0.2 cm CBD: 0.2 cm, color Doppler imaging was utilized to isolate the common bile duct for measurement. Right Kidney: 10.8x4.3x4.1 cm LEAD [employer] ARCHITECT NOTES: limited exam due to pt body habitus & overlying bowel/gas Pancreas: Tail obscured by overlying bowel gas Liver: Increased attenuation, decreased visualization of vessels suggestive of fatty infiltrate, dif ficult to penetrate Gallbladder: No stones seen Evidence for sonographic Ronquillo's sign: No CBD: Slightly obscured by overlying bowel Right Kidney: No hydronephrosis or masses seen IMPRESSION: 1. No acute abnormality right upper quadrant ultrasound [facility], , 08/19/2024 11:31 AM
== END | disposition home or self-care (01) ==
LOC: RADUSWWP 09:18
PROVIDERS: ATTEND Surgery Plastic and Reconstructive Surgery
DX: R10.13 Epigastric pain (principal)
CPT/HCPCS: 76705

== ENCOUNTER → 2024-08-25 | Outpatient (CLI) | payer BC ==
--- NOTE | 2024-08-25 15:25 | NM ---
EXAMINATION TYPE: NM hepatobiliary w EF DATE OF EXAM: 08/25/2024 COMPARISON: Gallbladder ultrasound 6 days ago CLINICAL INDICATION: Female, 39 years old with history of R10.11 RUQ R10.13 EPI PAIN; TECHNIQUE: After the intravenous administration of 5.1 mCi Tc 99m Mebrofenin hepatobiliary scintigrap hy is performed. Immediate images post injection. FINDINGS: There is satisfactory initial accumulation of tracer by the liver. The gallbladder is visualized wit hin 5 minutes. The small bowel activity is noted within 25 minutes. At one hour 8 ounces of oral en sure plus is given to mimic CCK and gallbladder ejection fraction is calculated at 80 %, in the alex l range. Therefore there is no scintigraphic evidence of cystic or common bile duct obstruction to s uggest acute cholecystitis or gallbladder hypokinesia. IMPRESSION: As above. [facility], , 08/25/2024 3:23 PM
== END | disposition home or self-care (01) ==
LOC: RADNMMAIN 12:43
PROVIDERS: ATTEND Surgery Plastic and Reconstructive Surgery
DX: R10.13 Epigastric pain (principal)
CPT/HCPCS: 78226; A9537

== ENCOUNTER 2024-09-19 08:12 | Day surgery (SDC) | payer BC ==
[2024-09-15 15:11] VITALS: BMI 34.7
--- NOTE | 2024-09-19 07:58 | P.GSHP ---
History of Present Illness H&P Date: 09/19/24 CHIEF COMPLAINT: GERD HISTORY OF PRESENT ILLNESS: The patient is a 39-year-old female who presents reports gastroesophageal reflux disease and dysphagia. Upper endoscopy was offered for further evaluation and management. PAST MEDICAL HISTORY: Please see list. PAST SURGICAL HISTORY: Please see list. MEDICATIONS: Please see list. ALLERGIES: Please see list. SOCIAL HISTORY: No illicit drug use FAMILY HISTORY: No reports of Crohn disease or ulcerative colitis. REVIEW OF ORGAN SYSTEMS: CONSTITUTIONAL: No reports of fevers or chills. GI: Denies any blood in stools or constipation. PHYSICAL EXAM: VITAL SIGNS: Stable GENERAL: Well-developed and pleasant in no acute distress. HEENT: No scleral icterus. Extraocular movements grossly intact. Moist buccal mucosa. NECK: Supple without lymphadenopathy. CHEST: Unlabored respirations. Equal bilateral excursions. CARDIOVASCULAR: Regular rate and rhythm. Distal 2+ pulses. ABDOMEN: Soft, nondistended. MUSCULOSKELETAL: No clubbing, cyanosis, or edema. ASSESSMENT: 1. Gastroesophageal reflux disease and dysphagia PLAN: 1. Recommend proceeding with an upper endoscopy Past Medical History Past Medical History: GERD/Reflux, Skin Disorder, Thyroid Disorder Additional Past Medical History / Comment(s): History Migraines. hypothyroidism. recent dysphagia to some foods & her vitamins, had pre-eclampsia during , has never otherwise taken med. for htn., hx. psoriasis History of Any Multi-Drug Resistant Organisms: None Reported Past Surgical History: Bariatric Surgery, Section Additional Past Surgical History / Comment(s): wisdom teeth extractions . c section X2. sleeve gastrectomy 10-21-21 Past Anesthesia/Blood Transfusion Reactions: No Reported Reaction Smoking Status: Former smoker - Past Family History Mother Family Medical History: Hypertension, Rheumatoid Arthritis (RA), Thyroid Disorder Father Family Medical History: GI Bleed, Hypertension, Rheumatoid Arthritis (RA) Medications and Allergies Home Medications Medication Instructions Recorded Confirmed Type Levothyroxine Sodium [Synthroid] 75 mcg PO DAILY 05/08/21 09/15/24 History Calcium Citrate 250 mg PO HS 07/23/22 09/15/24 History Multivitamins, Thera [Multivitamin 1 tab PO HS 07/23/22 09/15/24 History (formulary)] Dextroamphetamine/Amphetamine 1 cap PO DAILY 08/10/24 09/15/24 History [Adderall Xr 20 mg Capsule] Cholecalciferol [Vitamin D3 (25 25 mcg PO DAILY 09/15/24 09/15/24 History Mcg = 1000 Iu)] Ferrous Sulfate [Feosol] 325 mg PO HS 09/15/24 09/15/24 History Folate 1 tab PO DAILY 09/15/24 History L.acidoph,Paracasei, B.lactis 1 each PO DAILY 09/15/24 09/15/24 History [Probiotic] levonorgestreL [Mirena] 1 each IY DIRECTED 09/15/24 09/15/24 History Allergies Allergy/AdvReac Type Severity Reaction Status Date / Time azithromycin Allergy Rash/Hives Verified 09/15/24 15:03 [From Zithromax Z-Jose Angel] erythromycin ethylsuccinate Allergy Rash/Hives Verified 09/15/24 15:03 [From Pediazole] sulfisoxazole acetyl Allergy Rash/Hives Verified 09/15/24 15:03 [From Pediazole]
[2024-09-19 08:39] VITALS: TEMP 97.8
[2024-09-19] MEDS: IV FLUID CONTINUATION 1,000 ML IV ONE (08:46)
[2024-09-19] MEDS ORDERED: PROPOFOL 10 MG/ML 20 ML VIAL IV ONE (09:05)
[2024-09-19] MEDS ORDERED: LIDOCAINE 2% (PF) 20 MG/ML 5 ML VIAL ONE (09:05)
--- NOTE | 2024-09-19 09:38 | P.PCN ---
Date of Procedure: 09/19/24 Description of Procedure: PREOPERATIVE DIAGNOSIS: Dysphagia Gastroesophageal reflux disease. Status post sleeve gastrectomy. POSTOPERATIVE DIAGNOSIS: Erosive esophagitis, chronic. Diaphragmatic hiatal hernia without obstruction. Chronic superficial gastritis. OPERATION: Esophagogastroduodenoscopy with cold forceps biopsies along the antrum, esophagus, duodenum. SURGEON: Jessika Guerrier MD ANESTHESIA: MAC. INDICATIONS: The patient is a 39-year-old female who presents with a history of sleeve marah rectomy with uncontrollable gastroesophageal reflux disease including dysphagia. Benefits and risks of the procedure were described. Informed consent was obtained. DESCRIPTION: The patient was brought into the endoscopy suite and laid in the left lateral decubitus position. An Olympus gastroscope was passed along the posterior oropharynx down to the distal esophagus where the squamocolumnar junction was at 37 cms from the incisors remarkable for chronic erosive esophagitis, LA grade B without ulceration. The stomach was entered where she had a 2-cm hiatal hernia with a diaphragmatic hiatus found at 39 cm. The sleeve reservoir was within normal limits without tortuosity. Chronic gastritis albeit mild was found along the antrum with cold biopsies obtained. The first through third portion of the duodenum was examined with biopsies obtained. The stomach was desufflated. The patient tolerated the procedure well. FINDINGS: No acute ulceration found along her sleeve. No corkscrewing sleeve gastrectomy. Squamocolumnar junction at 37 cm from the incisors. Diaphragmatic hiatus at 39 cm. Diaphragmatic hiatal hernia, 2 cm Gastric reservoir within normal limits. LA grade B erosive esophagitis. Biopsies obtained Duodenum assessed with biopsies obtained Chronic gastritis. Biopsies obtained RECOMMENDATIONS: Upper endoscopy as needed. Plan - Discharge Summary Discharge Rx Participant: No New Discharge Prescriptions: Continue Levothyroxine Sodium [Synthroid] 75 mcg PO DAILY Calcium Citrate 250 mg PO HS levonorgestreL [Mirena] 1 each IY DIRECTED L.acidoph,Paracasei, B.lactis [Probiotic] 1 each PO DAILY Multivitamins, Thera [Multivitamin (formulary)] 1 tab PO HS Dextroamphetamine/Amphetamine [Adderall Xr 20 mg Capsule] 1 cap PO DAILY Cholecalciferol [Vitamin D3 (25 Mcg = 1000 Iu)] 25 mcg PO DAILY Ferrous Sulfate [Iron (65 MG Elemental)] 325 mg PO HS Folate 1 tab PO DAILY Discharge Medication List Levothyroxine Sodium [Synthroid] 75 mcg PO DAILY 05/08/21 [History] Calcium Citrate 250 mg PO HS 07/23/22 [History] Multivitamins, Thera [Multivitamin (formulary)] 1 tab PO HS 07/23/22 [History] Dextroamphetamine/Amphetamine [Adderall Xr 20 mg Capsule] 1 cap PO DAILY 08/10/24 [History] Cholecalciferol [Vitamin D3 (25 Mcg = 1000 Iu)] 25 mcg PO DAILY 09/15/24 [History] Ferrous Sulfate [Iron (65 MG Elemental)] 325 mg PO HS 09/15/24 [History] Folate 1 tab PO DAILY 09/15/24 [History] L.acidoph,Paracasei, B.lactis [Probiotic] 1 each PO DAILY 09/15/24 [History] levonorgestreL [Mirena] 1 each IY DIRECTED 09/15/24 [History] Follow up Appointment(s)/[place] [facility] [place] - 10/05/24 3:00 pm Patient Instructions/Handouts: Hiatal Hernia (DC), GERD (Gastroesophageal Reflux Disease) (ED) Discharge Disposition: HOME SELF-CARE
[2024-09-19 09:44] VITALS: BP 132/83; PULSE 83; RESP 16
== END 2024-09-19 10:23 | disposition home or self-care (01) ==
LOC: ORWHC2ENDO 08:12
PROVIDERS: ATTEND Surgery Plastic and Reconstructive Surgery
DX: K21.00 Gastro-esophageal reflux disease with esophagitis, without bleeding (principal); K22.10 Ulcer of esophagus without bleeding; K29.30 Chronic superficial gastritis without bleeding; K44.9 Diaphragmatic hernia without obstruction or gangrene; E03.9 Hypothyroidism, unspecified; I10 Essential (primary) hypertension; Z79.890 Hormone replacement therapy; Z87.891 Personal history of nicotine dependence; Z98.84 Bariatric surgery status; Z79.899 Other long term (current) drug therapy
CPT/HCPCS: 81025; 88305; 43239; J2704; J2003

== ENCOUNTER → 2024-11-09 | Outpatient (CLI) | payer BC | END | disposition home or self-care (01) | LOC: LABWHC1 07:19 | PROVIDERS: ATTEND Surgery Plastic and Reconstructive Surgery | DX: E03.9 Hypothyroidism, unspecified (principal) | CPT/HCPCS: 36415; 84443 ==